=== PATIENT | female | born 1940 | race African-American/Black ===

== ENCOUNTER 2018-08-23 16:08 | Inpatient (IN) | payer MEDICARE, OTHER ==
[~2018-08-23] VITALS: Ht 175.3 cm; Wt 96.6 kg
[~2018-08-23 16:08] MED LIST: METOPROLOL TART50 MG PO
--- OUTSIDE RECORDS SUMMARY | 2018-08-23 16:10 | XMS REPORT | Summary of Care ---
Author Author [facility] Organization [facility] Address Unknown Phone Unavailable Encounter HQ Encntr_alias(FIN) [id number] Date(s): 11/07/17 - 11/07/17 [facility] [address] [place] [address]- Encounter Diagnosis Spondylolisthesis, lumbar region (Final) - 11/14/17 Discharge Disposition: Home or Self Care Attending Physician: Kamron Echeverria MD Referring Physician: Kamron Echeverria MD Vital Signs No data available for this section Problem List No data available for this section Allergies, Adverse Reactions, Alerts No data available for this section Medications No data available for this section Results No data available for this section Immunizations No data available for this section Procedures No data available for this section Social History No data available for this section Assessment and Plan No data available for this section
--- OUTSIDE RECORDS SUMMARY | 2018-08-23 16:10 | XMS REPORT | Summary of Care ---
Author Author [facility] Organization [facility] Address Unknown Phone Unavailable Encounter HQ Encntr_alias(FIN) [id number] Date(s): 09/20/16 - 09/20/16 [facility] [address] [place] [phone] Discharge Disposition: Home or Self Care Attending Physician: Obi Jacobson MD Vital Signs No data available for [...]
--- OUTSIDE RECORDS SUMMARY | 2018-08-23 16:10 | XMS REPORT ---
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 Delroy Brooks Jr. Unavailable Unavailable Advance directives Directive Description Status Cardiopulmonary Resuscitation CPR Current and Verified Allergies Type Substance Reaction Status drug allergy Codeine Active drug allergy Hydralazine Active drug allergy Morphine Active Problems Problem Effective Dates Problem Status Walking disability (finding) 12/24/2017 Active M54.9 DORSALGIA, UNSPECIFIED 12/24/2017 Active D64.9 ANEMIA, UNSPECIFIED 12/24/2017 Active M62.81 MUSCLE WEAKNESS (GENERALIZED) 12/25/2017 Active T81.4XXS INFECTION FOLLOWING A PROCEDURE, SEQUELA 12/24/2017 Active M79.7 FIBROMYALGIA 12/24/2017 Active 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, LUMBAR REGION 12/24/2017 Active Medications Medication Dose Form Route Sig Text Dates Status Venlafaxine HCl Tablet 75 MG 1 tablet Tablet Oral Give 1 tablet by mouth one time a day for depression 12/25/2017 9:00:00 Bisacodyl Suppository 10 MG 1 suppository Suppository Rectal Insert 1 suppository rectally every 24 hours as needed for constipation 12/25/2017 8:15:00 12/26/2017 16:37:00 Aborted Tylenol Tablet 325 MG 2 tablet Tablet Oral Give 2 tablet by mouth every 4 hours as needed for pain 12/25/2017 8:15:00 Cyclobenzaprine HCl Tablet 10 MG 1 tablet Tablet Oral Give 1 tablet by mouth every 8 hours as needed for muscle pain 12/25/2017 8:15:00 12/28/2017 10:03:00 Aborted Commerce Tablet 7.5-325 MG 1 tablet Tablet Oral Give 1 tablet by mouth every 4 hours as needed for Pain 12/26/2017 10:30:00 Cyclobenzaprine HCl Tablet 10 MG 10 mg Tablet Oral Give 10 mg by mouth every 12 hours as needed for muscle spasms 12/28/2017 10:15:00 12/31/2017 4:26:00 Aborted Cyclobenzaprine HCl Tablet 10 MG 10 mg Tablet Oral Give 10 mg by mouth in the evening for muscle spasm 12/28/2017 19:00:00 Metoprolol Tartrate Tablet 25 MG 0.5 tablet Tablet Oral Give 0.5 tablet by mouth one time a day for htn=12.5mg totalHold for SBP less than 110 and or HR less than 60 12/30/2017 9:00:00 01/07/2018 12:13:00 Aborted FentaNYL Patch 72 Hour 25 MCG/HR 1 patch Patch 72 Hour Transdermal Apply 1 patch transdermally one time a day every 3 day(s) for pain and remove per schedule 12/30/2017 9:00:00 Gabapentin Capsule 300 MG 1 capsule Capsule Oral Give 1 capsule by mouth two times a day for Neuropathy 12/30/2017 17:00:00 12/31/2017 17:22:00 Aborted Cyclobenzaprine HCl Tablet 10 MG 10 mg Tablet Oral Give 10 mg by mouth every 24 hours as needed for muscle spasms Give one tab po QD/prn. Give 12 hours after scheduled dose 12/31/2017 10:15:00 Gabapentin Capsule 300 MG 1 capsule Capsule Oral Give 1 capsule by mouth every 12 hours for Neuropathy 12/31/2017 21:00:00 01/05/2018 11:11:00 Aborted NIFEdipine ER Tablet Extended Release 24 Hour 30 MG 1 tablet Tablet Extended Release 24 Hour Oral Give 1 tablet by mouth one time a day for HTN Hold for SBP less than 110 01/03/2018 9:00:00 Nifediac CC Tablet Extended Release 24 Hour 60 MG 1 tablet Tablet Extended Release 24 Hour Oral Give 1 tablet by mouth at bedtime for HTN Hold for SBP less than 110 01/02/2018 21:00:00 Gabapentin Capsule 300 MG 1 capsule Capsule Oral Give 1 capsule by mouth at bedtime for Neuropathy 01/05/2018 21:00:00 Lactobacillus Capsule 1 capsule Capsule Oral Give 1 capsule by mouth two times a day for GI Health 01/07/2018 9:00:00 Metoprolol Tartrate Tablet 25 MG 0.5 tablet Tablet Oral Give 0.5 tablet by mouth two times a day for htn=12.5mg totalHold for SBP less than 110 and or HR less than 60 01/07/2018 17:00:00 Senna Tablet 8.6 MG 1 tablet Tablet Oral Give 1 tablet by mouth every 12 hours for constipation 12/25/2017 9:00:00 Nifediac CC Tablet Extended Release 24 Hour 60 MG 1 tablet Tablet Extended Release 24 Hour Oral Give 1 tablet by mouth one time a day for htn Give 30mg and 60mg=90mgHold for SBP less than 110 and or hr less than 60 12/25/2017 9:00:00 01/02/2018 13:45:00 Aborted Metoprolol Tartrate Tablet 25 MG 0.5 tablet Tablet Oral Give 0.5 tablet by mouth one time a day for htn Hold for SBP less than 110 and or HR less than 60 12/25/2017 9:00:00 12/25/2017 9:57:00 Aborted Zofran ODT Tablet Disintegrating 4 MG 1 tablet Tablet Disintegrating Oral Give 1 tablet by mouth every 4 hours as needed for N/V 12/25/2017 7:15:00 12/26/2017 16:36:00 Aborted Isosorbide Dinitrate Tablet 30 MG 1 tablet Tablet Oral Give 1 tablet by mouth one time a day for afib 12/25/2017 9:00:00 Nifedical XL Tablet Extended Release 24 Hour 30 MG 1 tablet Tablet Extended Release 24 Hour Oral Give 1 tablet by mouth one time a day for htn Give 30mg and 60mg=90mgHold for SBP less than 110 and or hr less than 60 12/25/2017 9:00:00 01/02/2018 13:45:00 Aborted Metoprolol Tartrate Tablet 25 MG 0.5 tablet Tablet Oral Give 0.5 tablet by mouth one time a day for htn=1.5mg totalHold for SBP less than 110 and or HR less than 60 12/26/2017 9:00:00 12/29/2017 9:49:00 Aborted Celecoxib Capsule 200 MG 1 capsule Capsule Oral Give 1 capsule by mouth every 12 hours as needed for pain 12/25/2017 7:15:00 12/26/2017 16:36:00 Aborted HydrALAZINE HCl Tablet 25 MG 1 tablet Tablet Oral Give 1 tablet by mouth three times a day for HTN hold for SBP less than 110 01/09/2018 17:00:00 01/10/2018 8:38:00 Aborted CloNIDine HCl Tablet 0.1 MG 1 tablet Tablet Oral Give 1 tablet by mouth every 12 hours as needed for HTN give for SBP greater than 170 01/10/2018 9:15:00 Rifadin Capsule 300 MG 2 capsule Capsule Oral Give 2 capsule by mouth in the evening for spinal infection until 01/08/2018 23:59 12/25/2017 17:00:00 01/08/2018 23:59:00 Completed Potassium Chloride ER Tablet Extended Release 20 MEQ Tablet Extended Release Oral Give 2 tablet by mouth one time only for low kcl until 01/08/2018 23:59 AND Give 1 tablet by mouth one time a day for low kcl for 3 Days 01/08/2018 13:45:00 01/12/2018 8:59:00 Completed Vancomycin HCl Solution Reconstituted 750 MG 750 mg Solution Reconstituted Intravenous Use 750 mg intravenously every 12 hours for laminectomy until 01/25/2018 23:59 12/25/2017 9:00:00 01/25/2018 23:59:00 Results Date Test Result Interpretation Reference Range Status Notes Blood sugar 12/09/2017 Blood sugar mmol/L Vital signs Description Observation Date BODY HEIGHT (MEASURED) 69.0 [in_i] 12/09/2017 BODY WEIGHT (MEASURED) 189.0 [lb_av] 12/09/2017 PAIN LEVEL 7.0 {score} 12/25/2017 11:39:40 PAIN LEVEL 8.0 {score} 12/25/2017 11:39:59 BODY WEIGHT (MEASURED) 189.0 [lb_av] 12/25/2017 15:17:00 BODY HEIGHT (MEASURED) 69.0 [in_i] 12/25/2017 15:17:00 BODY WEIGHT (MEASURED) 189.0 [lb_av] 12/25/2017 15:18:00 BODY HEIGHT (MEASURED) 69.0 [in_i] 12/25/2017 15:18:00 PAIN LEVEL 2.0 {score} 12/25/2017 16:44:51 PAIN LEVEL 5.0 {score} 12/26/2017 2:51:24 PAIN LEVEL 0.0 {score} 12/26/2017 4:01:00 INTRAVASCULAR SYSTOLIC 160.0 mm[Hg] 12/26/2017 9:50:16 INTRAVASCULAR DIASTOLIC 93.0 mm[Hg] 12/26/2017 9:50:16 HEART BEAT 85.0 {beats}/min 12/26/2017 9:50:16 PAIN LEVEL 0.0 {score} 12/26/2017 13:35:58 PAIN LEVEL 0.0 {score} 12/26/2017 17:22:10 BODY TEMPERATURE 97.5 [degF] 12/26/2017 17:39:00 OXYGEN SATURATION 98.0 % 12/26/2017 17:39:00 RESPIRATION RATE 18.0 /min 12/26/2017 17:40:00 INTRAVASCULAR SYSTOLIC 172.0 mm[Hg] 12/27/2017 12:09:26 INTRAVASCULAR DIASTOLIC 94.0 mm[Hg] 12/27/2017 12:09:26 HEART BEAT 91.0 {beats}/min 12/27/2017 12:09:26 INTRAVASCULAR SYSTOLIC 180.0 mm[Hg] 12/28/2017 9:24:09 INTRAVASCULAR DIASTOLIC 94.0 mm[Hg] 12/28/2017 9:24:09 HEART BEAT 86.0 {beats}/min 12/28/2017 9:24:09 PAIN LEVEL 7.0 {score} 12/29/2017 7:38:22 INTRAVASCULAR SYSTOLIC 146.0 mm[Hg] 12/29/2017 9:57:23 INTRAVASCULAR DIASTOLIC 89.0 mm[Hg] 12/29/2017 9:57:23 HEART BEAT 89.0 {beats}/min 12/29/2017 9:57:23 PAIN LEVEL 3.0 {score} 12/29/2017 11:28:34 PAIN LEVEL 2.0 {score} 12/29/2017 14:54:34 PAIN LEVEL 6.0 {score} 12/29/2017 14:54:54 PAIN LEVEL 4.0 {score} 12/29/2017 15:52:48 PAIN LEVEL 4.0 {score} 12/29/2017 20:01:00 PAIN LEVEL 2.0 {score} 12/29/2017 22:55:06 PAIN LEVEL 0.0 {score} 12/30/2017 2:56:18 PAIN LEVEL 7.0 {score} 12/30/2017 6:40:41 PAIN LEVEL 0.0 {score} 12/30/2017 10:33:41 INTRAVASCULAR SYSTOLIC 166.0 mm[Hg] 12/30/2017 10:34:13 INTRAVASCULAR DIASTOLIC 97.0 mm[Hg] 12/30/2017 10:34:13 HEART BEAT 77.0 {beats}/min 12/30/2017 10:34:13 PAIN LEVEL 1.0 {score} 12/30/2017 14:51:57 PAIN LEVEL 7.0 {score} 12/30/2017 14:53:03 PAIN LEVEL 3.0 {score} 12/30/2017 17:05:20 PAIN LEVEL 3.0 {score} 12/30/2017 17:05:47 PAIN LEVEL 3.0 {score} 12/30/2017 17:06:25 PAIN LEVEL 0.0 {score} 12/31/2017 3:08:38 INTRAVASCULAR SYSTOLIC 158.0 mm[Hg] 12/31/2017 9:58:53 INTRAVASCULAR DIASTOLIC 88.0 mm[Hg] 12/31/2017 9:58:53 HEART BEAT 83.0 {beats}/min 12/31/2017 9:58:53 PAIN LEVEL 7.0 {score} 12/31/2017 11:34:16 PAIN LEVEL 1.0 {score} 12/31/2017 15:02:38 PAIN LEVEL 7.0 {score} 12/31/2017 15:02:57 PAIN LEVEL 4.0 {score} 12/31/2017 20:42:12 PAIN LEVEL 0.0 {score} 12/31/2017 23:47:58 INTRAVASCULAR SYSTOLIC 173.0 mm[Hg] 01/01/2018 10:07:29 INTRAVASCULAR DIASTOLIC 97.0 mm[Hg] 01/01/2018 10:07:29 HEART BEAT 93.0 {beats}/min 01/01/2018 10:07:29 PAIN LEVEL 7.0 {score} 01/01/2018 10:08:22 PAIN LEVEL 3.0 {score} 01/01/2018 16:37:55 PAIN LEVEL 4.0 {score} 01/01/2018 16:38:16 PAIN LEVEL 7.0 {score} 01/01/2018 16:38:30 PAIN LEVEL 2.0 {score} 01/01/2018 16:38:37 PAIN LEVEL 2.0 {score} 01/01/2018 16:38:46 PAIN LEVEL 4.0 {score} 01/01/2018 21:49:43 PAIN LEVEL 3.0 {score} 01/01/2018 22:02:48 PAIN LEVEL 0.0 {score} 01/02/2018 3:24:15 PAIN LEVEL 5.0 {score} 01/02/2018 8:49:24 PAIN LEVEL 0.0 {score} 01/02/2018 9:59:31 PAIN LEVEL 0.0 {score} 01/02/2018 10:00:10 INTRAVASCULAR SYSTOLIC 123.0 mm[Hg] 01/02/2018 10:03:25 INTRAVASCULAR DIASTOLIC 92.0 mm[Hg] 01/02/2018 10:03:25 HEART BEAT 79.0 {beats}/min 01/02/2018 10:03:25 PAIN LEVEL 9.0 {score} 01/02/2018 13:53:59 PAIN LEVEL 9.0 {score} 01/02/2018 13:55:40 PAIN LEVEL 0.0 {score} 01/02/2018 16:29:07 PAIN LEVEL 4.0 {score} 01/02/2018 17:44:00 PAIN LEVEL 0.0 {score} 01/02/2018 19:04:20 INTRAVASCULAR SYSTOLIC 190.0 mm[Hg] 01/02/2018 20:32:20 INTRAVASCULAR DIASTOLIC 93.0 mm[Hg] 01/02/2018 20:32:20 PAIN LEVEL 3.0 {score} 01/02/2018 21:59:27 PAIN LEVEL 3.0 {score} 01/02/2018 22:44:52 PAIN LEVEL 4.0 {score} 01/02/2018 22:45:17 PAIN LEVEL 0.0 {score} 01/03/2018 9:47:40 INTRAVASCULAR SYSTOLIC 149.0 mm[Hg] 01/03/2018 12:19:18 INTRAVASCULAR DIASTOLIC 86.0 mm[Hg] 01/03/2018 12:19:18 HEART BEAT 82.0 {beats}/min 01/03/2018 12:19:18 PAIN LEVEL 1.0 {score} 01/03/2018 17:33:51 INTRAVASCULAR SYSTOLIC 190.0 mm[Hg] 01/03/2018 21:19:07 INTRAVASCULAR DIASTOLIC 94.0 mm[Hg] 01/03/2018 21:19:07 INTRAVASCULAR SYSTOLIC 168.0 mm[Hg] 01/04/2018 11:02:20 INTRAVASCULAR DIASTOLIC 82.0 mm[Hg] 01/04/2018 11:02:20 HEART BEAT 79.0 {beats}/min 01/04/2018 11:02:20 INTRAVASCULAR SYSTOLIC 173.0 mm[Hg] 01/04/2018 21:07:37 INTRAVASCULAR DIASTOLIC 92.0 mm[Hg] 01/04/2018 21:07:37 PAIN LEVEL 0.0 {score} 01/05/2018 8:48:12 PAIN LEVEL 0.0 {score} 01/05/2018 8:48:34 PAIN LEVEL 0.0 {score} 01/05/2018 9:41:39 PAIN LEVEL 0.0 {score} 01/05/2018 9:41:55 PAIN LEVEL 7.0 {score} 01/05/2018 11:10:38 BODY WEIGHT (MEASURED) 186.2 [lb_av] 01/05/2018 15:59:00 BODY HEIGHT (MEASURED) 69.0 [in_i] 01/05/2018 15:59:00 PAIN LEVEL 0.0 {score} 01/05/2018 16:17:20 PAIN LEVEL 0.0 {score} 01/05/2018 17:19:52 INTRAVASCULAR SYSTOLIC 143.0 mm[Hg] 01/05/2018 20:37:42 INTRAVASCULAR DIASTOLIC 86.0 mm[Hg] 01/05/2018 20:37:42 PAIN LEVEL 7.0 {score} 01/06/2018 8:02:01 INTRAVASCULAR SYSTOLIC 165.0 mm[Hg] 01/06/2018 10:04:11 INTRAVASCULAR DIASTOLIC 96.0 mm[Hg] 01/06/2018 10:04:11 HEART BEAT 95.0 {beats}/min 01/06/2018 10:04:11 PAIN LEVEL 2.0 {score} 01/06/2018 15:17:46 PAIN LEVEL 2.0 {score} 01/06/2018 18:37:30 INTRAVASCULAR SYSTOLIC 172.0 mm[Hg] 01/06/2018 20:25:42 INTRAVASCULAR DIASTOLIC 84.0 mm[Hg] 01/06/2018 20:25:42 PAIN LEVEL 0.0 {score} 01/07/2018 7:21:19 PAIN LEVEL 0.0 {score} 01/07/2018 7:21:48 INTRAVASCULAR SYSTOLIC 154.0 mm[Hg] 01/07/2018 10:07:54 INTRAVASCULAR DIASTOLIC 87.0 mm[Hg] 01/07/2018 10:07:54 HEART BEAT 92.0 {beats}/min 01/07/2018 10:07:54 INTRAVASCULAR SYSTOLIC 174.0 mm[Hg] 01/07/2018 16:54:26 INTRAVASCULAR DIASTOLIC 88.0 mm[Hg] 01/07/2018 16:54:26 HEART BEAT 83.0 {beats}/min 01/07/2018 16:54:26 INTRAVASCULAR SYSTOLIC 190.0 mm[Hg] 01/07/2018 20:57:12 INTRAVASCULAR DIASTOLIC 100.0 mm[Hg] 01/07/2018 20:57:12 PAIN LEVEL 0.0 {score} 01/07/2018 21:56:06 PAIN LEVEL 0.0 {score} 01/08/2018 10:09:57 PAIN LEVEL 0.0 {score} 01/08/2018 10:10:29 INTRAVASCULAR SYSTOLIC 110.0 mm[Hg] 01/08/2018 10:19:44 INTRAVASCULAR DIASTOLIC 77.0 mm[Hg] 01/08/2018 10:19:44 HEART BEAT 84.0 {beats}/min 01/08/2018 10:19:44 PAIN LEVEL 6.0 {score} 01/08/2018 13:06:00 INTRAVASCULAR SYSTOLIC 185.0 mm[Hg] 01/08/2018 17:03:44 INTRAVASCULAR DIASTOLIC 92.0 mm[Hg] 01/08/2018 17:03:44 HEART BEAT 77.0 {beats}/min 01/08/2018 17:03:44 PAIN LEVEL 6.0 {score} 01/08/2018 17:05:53 PAIN LEVEL 0.0 {score} 01/08/2018 20:24:48 INTRAVASCULAR SYSTOLIC 194.0 mm[Hg] 01/08/2018 20:30:27 INTRAVASCULAR DIASTOLIC 98.0 mm[Hg] 01/08/2018 20:30:27 PAIN LEVEL 0.0 {score} 01/08/2018 21:47:14 PAIN LEVEL 4.0 {score} 01/08/2018 21:47:35 PAIN LEVEL 0.0 {score} 01/09/2018 4:48:12 PAIN LEVEL 0.0 {score} 01/09/2018 4:48:25 PAIN LEVEL 0.0 {score} 01/09/2018 6:35:31 PAIN LEVEL 6.0 {score} 01/09/2018 9:46:00 INTRAVASCULAR SYSTOLIC 160.0 mm[Hg] 01/09/2018 10:53:30 INTRAVASCULAR DIASTOLIC 84.0 mm[Hg] 01/09/2018 10:53:30 HEART BEAT 81.0 {beats}/min 01/09/2018 10:53:30 PAIN LEVEL 4.0 {score} 01/09/2018 14:58:58 PAIN LEVEL 7.0 {score} 01/09/2018 15:00:19 INTRAVASCULAR SYSTOLIC 180.0 mm[Hg] 01/09/2018 17:06:11 INTRAVASCULAR DIASTOLIC 100.0 mm[Hg] 01/09/2018 17:06:11 HEART BEAT 83.0 {beats}/min 01/09/2018 17:06:11 PAIN LEVEL 3.0 {score} 01/09/2018 19:18:25 PAIN LEVEL 2.0 {score} 01/09/2018 21:17:11 PAIN LEVEL 3.0 {score} 01/09/2018 21:17:51 PAIN LEVEL 3.0 {score} 01/09/2018 22:06:49 INTRAVASCULAR SYSTOLIC 194.0 mm[Hg] 01/10/2018 9:51:25 INTRAVASCULAR DIASTOLIC 84.0 mm[Hg] 01/10/2018 9:51:25 HEART BEAT 85.0 {beats}/min 01/10/2018 9:51:25 INTRAVASCULAR SYSTOLIC 195.0 mm[Hg] 01/10/2018 17:51:23 INTRAVASCULAR DIASTOLIC 96.0 mm[Hg] 01/10/2018 17:51:23 HEART BEAT 78.0 {beats}/min 01/10/2018 17:51:23 PAIN LEVEL 4.0 {score} 01/10/2018 19:21:12 INTRAVASCULAR SYSTOLIC 162.0 mm[Hg] 01/10/2018 21:34:58 INTRAVASCULAR DIASTOLIC 78.0 mm[Hg] 01/10/2018 21:34:58 PAIN LEVEL 0.0 {score} 01/11/2018 7:32:32 INTRAVASCULAR SYSTOLIC 176.0 mm[Hg] 01/11/2018 10:11:57 INTRAVASCULAR DIASTOLIC 74.0 mm[Hg] 01/11/2018 10:11:57 HEART BEAT 82.0 {beats}/min 01/11/2018 10:11:57 INTRAVASCULAR SYSTOLIC 172.0 mm[Hg] 01/11/2018 17:45:47 INTRAVASCULAR DIASTOLIC 86.0 mm[Hg] 01/11/2018 17:45:47 HEART BEAT 78.0 {beats}/min 01/11/2018 17:45:47 INTRAVASCULAR SYSTOLIC 181.0 mm[Hg] 01/11/2018 20:58:32 INTRAVASCULAR DIASTOLIC 90.0 mm[Hg] 01/11/2018 20:58:32 PAIN LEVEL 0.0 {score} 01/12/2018 6:28:41 PAIN LEVEL 0.0 {score} 01/12/2018 6:28:50 INTRAVASCULAR SYSTOLIC 152.0 mm[Hg] 01/12/2018 10:01:33 INTRAVASCULAR DIASTOLIC 95.0 mm[Hg] 01/12/2018 10:01:33 HEART BEAT 74.0 {beats}/min 01/12/2018 10:01:33 PAIN LEVEL 10.0 {score} 01/12/2018 11:17:37 PAIN LEVEL 0.0 {score} 01/12/2018 13:31:14 INTRAVASCULAR SYSTOLIC 152.0 mm[Hg] 01/12/2018 16:31:00 INTRAVASCULAR DIASTOLIC 60.0 mm[Hg] 01/12/2018 16:31:00 HEART BEAT 74.0 {beats}/min 01/12/2018 16:31:00 PAIN LEVEL 0.0 {score} 01/12/2018 17:06:43 PAIN LEVEL 8.0 {score} 01/12/2018 19:59:37 INTRAVASCULAR SYSTOLIC 184.0 mm[Hg] 01/12/2018 20:54:27 INTRAVASCULAR DIASTOLIC 89.0 mm[Hg] 01/12/2018 20:54:27 PAIN LEVEL 0.0 {score} 01/12/2018 21:53:03 PAIN LEVEL 7.0 {score} 01/13/2018 8:05:00 INTRAVASCULAR SYSTOLIC 149.0 mm[Hg] 01/13/2018 10:16:02 INTRAVASCULAR DIASTOLIC 66.0 mm[Hg] 01/13/2018 10:16:02 HEART BEAT 67.0 {beats}/min 01/13/2018 10:16:02 PAIN LEVEL 7.0 {score} 01/13/2018 13:25:05 PAIN LEVEL 2.0 {score} 01/13/2018 13:25:16 Social History Smoking Status Start Date End Date Unknown if ever smoked 01/14/2018 6:05:29
--- OUTSIDE RECORDS SUMMARY | 2018-08-23 16:10 | XMS REPORT | Continuity of Care Document ---
Author Author [facility] Interface Address Unknown Phone Unavailable Problems Problem Status Onset Date Classification Date Reported Comments Source M62.81 MUSCLE WEAKNESS 12/25/2017 Diagnosis 01/14/2018 SNF: [facility] [place] [email or web address] [place] [facility] Walking disability 12/24/2017 Diagnosis 01/14/2018 SNF: [facility] [place] [facility] M54.9 DORSALGIA, UNSPECIFIED 12/24/2017 Diagnosis 01/14/2018 SNF: [facility] [place] [facility] D64.9 ANEMIA, UNSPECIFIED 12/24/2017 Diagnosis 01/14/2018 SNF: [facility] [email or web address] [place] [facility] T81.4XXS INFECTION FOLLOWING A PROCEDURE, SEQUELA 12/24/2017 Diagnosis 01/14/2018 SNF: [facility] [place] [email or web address] [place] [facility] M79.7 FIBROMYALGIA 12/24/2017 Diagnosis 01/14/2018 SNF: [facility] [email or web address] [place] [facility] 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, LUMBAR REGION 12/24/2017 Diagnosis 01/14/2018 SNF: [facility] [email or web address] [place] [facility] Spondylolisthesis, lumbar region 11/15/2017 02/13/2018 [facility] M43.16 Active 11/06/2017 [facility] M75.101 - UNSP ROTATR-CUFF TEAR/RUPTR OF Active 09/17/2016 [facility] [place] Medications Medication Details Route Status Patient Instructions Ordering Provider Order Date Source CloNIDine HCl Tablet 0.1 MG Give 1 tablet by mouth every 12 hours as needed for HTN give for SBP greater than 170 Oral Active 01/10/2018 SNF: [facility] HydrALAZINE HCl Tablet 25 MG Give 1 tablet by mouth three times a day for HTN hold for SBP less than 110 Oral Active 01/09/2018 SNF: [facility] Potassium Chloride ER Tablet Extended Release 20 MEQ Give 2 tablet by mouth one time only for low kcl until 01/08/2018 23:59 AND Give 1 tablet by mouth one time a day for low kcl for 3 Days Oral Active 01/08/2018 SNF: [facility] Metoprolol Tartrate Tablet 25 MG Give 0.5 tablet by mouth two times a day for htn=12.5mg total Hold for SBP less than 110 and or HR less than 60 Oral Active 01/07/2018 SNF: [facility] Lactobacillus Capsule Give 1 capsule by mouth two times a day for GI Health Oral Active 01/07/2018 SNF: [facility] Gabapentin Capsule 300 MG Give 1 capsule by mouth at bedtime for Neuropathy Oral Active 01/06/2018 SNF: [facility] NIFEdipine ER Tablet Extended Release 24 Hour 30 MG Give 1 tablet by mouth one time a day for HTN Hold for SBP less than 110 Oral Active 01/03/2018 SNF: [facility] Nifediac CC Tablet Extended Release 24 Hour 60 MG Give 1 tablet by mouth at bedtime for HTN Hold for SBP less than 110 Oral Active 01/03/2018 SNF: [facility] Gabapentin Capsule 300 MG Give 1 capsule by mouth every 12 hours for Neuropathy Oral Active 01/01/2018 SNF: [facility] Cyclobenzaprine HCl Tablet 10 MG Give 10 mg by mouth every 24 hours as needed for muscle spasms Give one tab po QD/prn. Give 12 hours after scheduled dose Oral Active 12/31/2017 SNF: [facility] Gabapentin Capsule 300 MG Give 1 capsule by mouth two times a day for Neuropathy Oral Active 12/30/2017 SNF: [facility] Metoprolol Tartrate Tablet 25 MG Give 0.5 tablet by mouth one time a day for htn=12.5mg total Hold for SBP less than 110 and or HR less than 60 Oral Active 12/30/2017 SNF: [facility] FentaNYL Patch 72 Hour 25 MCG/HR Apply 1 patch transdermally one time a day every 3 day(s) for pain and remove per schedule Transdermal Active 12/30/2017 SNF: [facility] Cyclobenzaprine HCl Tablet 10 MG Give 10 mg by mouth in the evening for muscle spasm Oral Active 12/28/2017 SNF: [facility] Cyclobenzaprine HCl Tablet 10 MG Give 10 mg by mouth every 12 hours as needed for muscle spasms Oral Active 12/28/2017 SNF: [facility] Nash Tablet 7.5-325 MG Give 1 tablet by mouth every 4 hours as needed for Pain Oral Active 12/26/2017 SNF: [facility] Metoprolol Tartrate Tablet 25 MG Give 0.5 tablet by mouth one time a day for htn=1.5mg total Hold for SBP less than 110 and or HR less than 60 Oral Active 12/26/2017 SNF: [facility] Rifadin Capsule 300 MG Give 2 capsule by mouth in the evening for spinal infection until 01/08/2018 23:59 Oral Active 12/25/2017 SNF: [facility] Venlafaxine HCl Tablet 75 MG Give 1 tablet by mouth one time a day for depression Oral Active 12/25/2017 SNF: [facility] Senna Tablet 8.6 MG Give 1 tablet by mouth every 12 hours for constipation Oral Active 12/25/2017 SNF: [facility] Nifediac CC Tablet Extended Release 24 Hour 60 MG Give 1 tablet by mouth one time a day for htn Give 30mg and 60mg=90mg Hold for SBP less than 110 and or hr less than 60 Oral Active 12/25/2017 SNF: [facility] Metoprolol Tartrate Tablet 25 MG Give 0.5 tablet by mouth one time a day for htn Hold for SBP less than 110 and or HR less than 60 Oral Inactive 12/25/2017 SNF: [facility] Isosorbide Dinitrate Tablet 30 MG Give 1 tablet by mouth one time a day for afib Oral Active 12/25/2017 SNF: [facility] Nifedical XL Tablet Extended Release 24 Hour 30 MG Give 1 tablet by mouth one time a day for htn Give 30mg and 60mg=90mg Hold for SBP less than 110 and or hr less than 60 Oral Active 12/25/2017 SNF: [facility] Vancomycin HCl Solution Reconstituted 750 MG Use 750 mg intravenously every 12 hours for laminectomy until 01/25/2018 23:59 Intravenous Active 12/25/2017 SNF: [facility] Bisacodyl Suppository 10 MG Insert 1 suppository rectally every 24 hours as needed for constipation Rectal Active 12/25/2017 SNF: [facility] Tylenol Tablet 325 MG Give 2 tablet by mouth every 4 hours as needed for pain Oral Active 12/25/2017 SNF: [facility] [place] [facility] Cyclobenzaprine HCl Tablet 10 MG Give 1 tablet by mouth every 8 hours as needed for muscle pain Oral Active 12/25/2017 SNF: [facility] [place] [facility] Zofran ODT Tablet Disintegrating 4 MG Give 1 tablet by mouth every 4 hours as needed for N/V Oral Active 12/25/2017 SNF: [facility] Celecoxib Capsule 200 MG Give 1 capsule by mouth every 12 hours as needed for pain Oral Active 12/25/2017 SNF: [facility] [place] [facility] Allergies, Adverse Reactions, Alerts Substance Category Reaction Severity Reaction type Status Date Reported Comments Source Codeine SNF: [facility] [place] [facility] Hydralazine SNF: [facility] [place] [facility] Morphine SNF: [facility] [place] [facility] Immunizations Immunization Date Given Site Status Last Updated Comments Source Results Order Name Results Value Reference Range Date Interpretation Comments Source Bone Density Scan Bone Density Scan Patient Name: ARDEN RIVERA : 1940; Age: 76 years y/o Female MR: [id number] Study: Bone Density Scan 11/07/2017 1:07 PM CDT Ordering Physician: Kamron Echeverria MD Comparison: None 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 The T score at the lumbar spine is 0.9 which is 109% expected peak bone mineral density. The T score at the left hip is 0.0 which is 100% expected peak bone mineral density. IMPRESSION: Normal bone mineral density at the lumbar spine. Normal bone mineral density at the left hip. SL: [id number] 11/07/2017 - - Read by: Elian Ramirez MD Dictated Date/time: 11/07/17 13:51 Electronically Signed by: Elian Ramirez MD 11/07/17 14:05 FINAL REPORT [facility] Shoulder wo contrast MRI Shoulder wo contrast MRI EXAMINATION: MR right shoulder without contrast HISTORY: M75.101 Unspecified rotator cuff tear or rupture of right shoulder, not specified as traumatic; right shoulder pain and limited range of motion status post fall in July 2016; right rotator cuff tear; right glenohumeral chondrosis COMPARISON: There are no radiographs available for review. TECHNIQUE: Multiplanar, multisequence magnetic resonance imaging of the right shoulder is performed with a local coil. Transverse, oblique coronal, and oblique sagittal images are obtained. FINDINGS: Biceps: There is medial dislocation of the proximal long head of the biceps tendon from the bicipital groove within an interstitial tear of the distal subscapularis tendon. The long head of the biceps tendon remains attached at the superior bicipital labral complex with underlying [id number] biceps tendinosis. Labrum: There is degenerative fraying of the superior labrum. The remainder of the labrum is intact. Rotator cuff tendons: There is a large full-thickness tear involving the entire supraspinatus and majority of the infraspinatus tendon measuring approximately 4.4 cm in anteroposterior dimension with medial retraction of the torn distal tendon fibers by approximately 4 cm and retraction of the myotendinous junctions to the level of the scapular neck. There is underlying severe supraspinatus and infraspinatus tendinosis. The teres minor tendon remains intact. There is also a high-grade, partial-thickness, articular sided tear with interstitial delaminating component involving the cranial fibers of the distal subscapularis tendon measuring approximately 1.1 cm in craniocaudal dimension with underlying subscapularis tendinosis. As described above, there is complete medial dislocation of the proximal long head of the biceps tendon from the bicipital groove within the interstitial tear of the distal subscapularis tendon. Muscles: There is moderate fatty atrophy of the supraspinatus and infraspinatus muscle bellies, as well as, moderate fatty atrophy of the cranial fibers of the subscapularis muscle. There is normal signal intensity and bulk of the teres minor muscle and caudal two-thirds of the subscapularis muscle. Acromio-osseous outlet: There is superior subluxation of the humeral head with respect to the glenoid with narrowing of the subacromial space in keeping with a full-thickness rotator cuff tear. There is a type II acromion with mild subacromial spurring. The coracoacromial and coracoclavicular ligaments are intact. There is severe degenerative arthrosis of the acromioclavicular joint including inferiorly projecting osteophytes. Bone: There are no acute fractures. There are no suspicious bone marrow replacing lesions. Cartilage: There are foci of deep partial thickness to near full-thickness chondrosis involving the superior to superomedial humeral head and partial- thickness, chondral thinning along the glenoid. Soft tissue: There is a moderate-sized to large glenohumeral joint effusion with scattered synovitis and fluid decompressing within the subcoracoid recess. Fluid distends the proximal biceps tendon sheath which also contains synovitis and debris. Fluid communicates with the subacromial subdeltoid bursa through the full-thickness rotator cuff defect. A few scattered loose bodies are noted within the glenohumeral axillary recess and within the proximal biceps tendon sheath. IMPRESSION: 1. Large full-thickness tear involving the entire right supraspinatus and majority of the right infraspinatus tendons measuring approximately 4.4 cm in anteroposterior dimension with medial retraction of the torn distal tendon fibers by approximately 4 cm and retraction of the myotendinous junctions to the level of the scapular neck. There is underlying severe right supraspinatus and infraspinatus tendinosis and moderate fatty atrophy of the supraspinatus and infraspinatus muscle bellies. 2. High-grade, partial-thickness, articular sided tear with interstitial delaminating component involving the cranial fibers of the distal right subscapularis tendon measuring approximately 1.1 cm in craniocaudal dimension with underlying subscapularis tendinosis. There is also moderate fatty atrophy of the cranial fibers of the right subscapularis muscle, but normal bulk and signal intensity of the caudal two-thirds of the subscapularis muscle. 3. Superior subluxation of the humeral head with respect to the glenoid with narrowing of the subacromial space in keeping with a full-thickness rotator cuff tear. 4. Complete medial dislocation of the proximal long head of the right biceps tendon from the bicipital groove within the interstitial tear of the distal right subscapularis tendon. There is underlying mild to moderate right biceps tendinosis and there is a moderate amount of fluid and synovitic debris within the proximal biceps tendon sheath consistent with biceps tenosynovitis. 5. Degenerative fraying of the superior right glenoid labrum. 6. Moderate right glenohumeral chondrosis with foci of deep partial thickness to near full-thickness chondrosis involving the superior to superomedial humeral head and partial-thickness, chondral thinning along the glenoid. 7. Severe right acromioclavicular degenerative arthrosis. 8. Moderate-sized to large right glenohumeral joint effusion with scattered synovitis and fluid decompressing within the subcoracoid recess. A few scattered loose bodies are noted within the glenohumeral axillary recess and within the proximal biceps tendon sheath. 09/20/2016 - - Read by: Noel Cantu MD Dictated Date/time: 09/20/16 08:48 Electronically Signed by: Noel Cantu MD 09/20/16 09:04 FINAL REPORT [facility] Vital Signs Vital Sign Value Date Comments Source Systolic (mm Hg) 149 01/13/2018 SNF: [facility] [place] [facility] [place] Diastolic (mm Hg) 66 01/13/2018 SNF: [facility] [place] [facility] [place] Heart Rate 67 {beats}/min 01/13/2018 SNF: [facility] [place] [facility] [place] Systolic (mm Hg) 184 01/13/2018 [facility]: [facility] [place] [facility] [place] Diastolic (mm Hg) 89 01/13/2018 SN[facility]: [facility] [place] [facility] [place] Systolic (mm Hg) 152 01/12/2018 [facility]: [facility] [place] [facility] [place] Diastolic (mm Hg) 60 01/12/2018 SN[facility]: [facility] [place] [facility] [place] Heart Rate 74 {beats}/min 01/12/2018 SN[facility]: [facility] [place] [facility] [place] Systolic (mm Hg) 152 01/12/2018 [facility]: [facility] [place] [facility] [place] Diastolic (mm Hg) 95 01/12/2018 [facility]: [facility] [place] [facility] [place] Heart Rate 74 {beats}/min 01/12/2018 [facility]: [facility] [place] [facility] [place] Systolic (mm Hg) 181 01/12/2018 SN[facility]: [facility] [place] [facility] [place] Diastolic (mm Hg) 90 01/12/2018 [facility]: [facility] [place] [facility] [place] Systolic (mm Hg) 172 01/11/2018 [facility]: [facility] [place] [facility] [place] Diastolic (mm Hg) 86 01/11/2018 [facility]: [facility] [place] [facility] [place] Heart Rate 78 {beats}/min 01/11/2018 [facility]: [facility] [place] [facility] [place] Systolic (mm Hg) 176 01/11/2018 [facility]: [facility] [place] [facility] [place] Diastolic (mm Hg) 74 01/11/2018 [facility]: [facility] [place] [facility] [place] Heart Rate 82 {beats}/min 01/11/2018 [facility]: [facility] [place] [facility] [place] Systolic (mm Hg) 162 01/11/2018 [facility]: [facility] [place] [facility] [place] Diastolic (mm Hg) 78 01/11/2018 [facility]: [facility] [place] [facility] [place] Systolic (mm Hg) 195 01/10/2018 [facility]: [facility] [place] [facility] [place] Diastolic (mm Hg) 96 01/10/2018 [facility]: [facility] [place] [facility] [place] Heart Rate 78 {beats}/min 01/10/2018 SN[facility]: [facility] [place] [facility] [place] Systolic (mm Hg) 194 01/10/2018 [facility]: [facility] [place] [facility] [place] Diastolic (mm Hg) 84 01/10/2018 [facility]: [facility] [place] [facility] [place] Heart Rate 85 {beats}/min 01/10/2018 [facility]: [facility] [place] [facility] [place] Systolic (mm Hg) 180 01/09/2018 [facility]: [facility] [place] [facility] [place] Diastolic (mm Hg) 100 01/09/2018 [facility]: [facility] [place] [facility] [place] Heart Rate 83 {beats}/min 01/09/2018 SN[facility]: [facility] [place] [facility] [place] Systolic (mm Hg) 160 01/09/2018 [facility]: [facility] [place] [facility] [place] Diastolic (mm Hg) 84 01/09/2018 [facility]: [facility] [place] [facility] [place] Heart Rate 81 {beats}/min 01/09/2018 SN[facility]: [facility] [place] [facility] [place] Systolic (mm Hg) 194 01/09/2018 SN[facility]: [facility] [place] [facility] [place] Diastolic (mm Hg) 98 01/09/2018 SN[facility]: [facility] [place] [facility] [place] Systolic (mm Hg) 185 01/08/2018 [facility]: [facility] [place] [facility] [place] Diastolic (mm Hg) 92 01/08/2018 [facility]: [facility] [place] [facility] [place] Heart Rate 77 {beats}/min 01/08/2018 SN[facility]: [facility] [place] [facility] [place] Systolic (mm Hg) 110 01/08/2018 [facility]: [facility] [place] [facility] [place] Diastolic (mm Hg) 77 01/08/2018 [facility]: [facility] [place] [facility] [place] Heart Rate 84 {beats}/min 01/08/2018 [facility]: [facility] [place] [facility] [place] Systolic (mm Hg) 190 01/08/2018 [facility]: [facility] [place] [facility] [place] Diastolic (mm Hg) 100 01/08/2018 [facility]: [facility] [place] [facility] [place] Systolic (mm Hg) 174 01/07/2018 [facility]: [facility] [place] [facility] [place] Diastolic (mm Hg) 88 01/07/2018 [facility]: [facility] [place] [facility] [place] Heart Rate 83 {beats}/min 01/07/2018 [facility]: [facility] [place] [facility] [place] Systolic (mm Hg) 154 01/07/2018 [facility]: [facility] [place] [facility] [place] Diastolic (mm Hg) 87 01/07/2018 [facility]: [facility] [place] [facility] [place] Heart Rate 92 {beats}/min 01/07/2018 [facility]: [facility] [place] [facility] [place] Systolic (mm Hg) 172 01/07/2018 [facility]: [facility] [place] [facility] [place] Diastolic (mm Hg) 84 01/07/2018 [facility]: [facility] [place] [facility] [place] Systolic (mm Hg) 165 01/06/2018 SN[facility]: [facility] [place] [facility] [place] Diastolic (mm Hg) 96 01/06/2018 [facility]: [facility] [place] [facility] [place] Heart Rate 95 {beats}/min 01/06/2018 [facility]: [facility] [place] [facility] [place] Systolic (mm Hg) 143 01/06/2018 [facility]: [facility] [place] [facility] [place] Diastolic (mm Hg) 86 01/06/2018 [facility]: [facility] [place] [facility] [place] Weight 186.2 01/05/2018 SNF: [facility] [place] [facility] [place] Height 69 01/05/2018 SN[facility]: [facility] [place] [facility] [place] Systolic (mm Hg) 173 01/05/2018 [facility]: [facility] [place] [facility] [place] Diastolic (mm Hg) 92 01/05/2018 [facility]: [facility] [place] [facility] [place] Systolic (mm Hg) 168 01/04/2018 [facility]: [facility] [place] [facility] [place] Diastolic (mm Hg) 82 01/04/2018 [facility]: [facility] [place] [facility] [place] Heart Rate 79 {beats}/min 01/04/2018 SN[facility]: [facility] [place] [facility] [place] Systolic (mm Hg) 190 01/04/2018 [facility]: [facility] [place] [facility] [place] Diastolic (mm Hg) 94 01/04/2018 [facility]: [facility] [place] [facility] [place] Systolic (mm Hg) 149 01/03/2018 SN[facility]: [facility] [place] [facility] [place] Diastolic (mm Hg) 86 01/03/2018 [facility]: [facility] [place] [facility] [place] Heart Rate 82 {beats}/min 01/03/2018 [facility]: [facility] [place] [facility] [place] Systolic (mm Hg) 190 01/03/2018 [facility]: [facility] [place] [facility] [place] Diastolic (mm Hg) 93 01/03/2018 [facility]: [facility] [place] [facility] [place] Systolic (mm Hg) 123 01/02/2018 SN[facility]: [facility] [place] [facility] [place] Diastolic (mm Hg) 92 01/02/2018 [facility]: [facility] [place] [facility] [place] Heart Rate 79 {beats}/min 01/02/2018 SN[facility]: [facility] [place] [facility] [place] Systolic (mm Hg) 173 01/01/2018 [facility]: [facility] [place] [facility] [place] Diastolic (mm Hg) 97 01/01/2018 [facility]: [facility] [place] [facility] [place] Heart Rate 93 {beats}/min 01/01/2018 SN[facility]: [facility] [place] [facility] [place] Systolic (mm Hg) 158 12/31/2017 SNF: [facility] [place] [facility] [place] Diastolic (mm Hg) 88 12/31/2017 [facility]: [facility] [place] [facility] [place] Heart Rate 83 {beats}/min 12/31/2017 [facility]: [facility] [place] [facility] [place] Systolic (mm Hg) 166 12/30/2017 SN[facility]: [facility] [place] [facility] [place] Diastolic (mm Hg) 97 12/30/2017 [facility]: [facility] [place] [facility] [place] Heart Rate 77 {beats}/min 12/30/2017 SN[facility]: [facility] [place] [facility] [place] Systolic (mm Hg) 146 12/29/2017 SNF: [facility] [place] [facility] [place] Diastolic (mm Hg) 89 12/29/2017 [facility]: [facility] [place] [facility] [place] Heart Rate 89 {beats}/min 12/29/2017 SN[facility]: [facility] [place] [facility] [place] Systolic (mm Hg) 180 12/28/2017 [facility]: [facility] [place] [facility] [place] Diastolic (mm Hg) 94 12/28/2017 [facility]: [facility] [place] [facility] [place] Heart Rate 86 {beats}/min 12/28/2017 SN[facility]: [facility] [place] [facility] [place] Systolic (mm Hg) 172 12/27/2017 SN[facility]: [facility] [place] [facility] [place] Diastolic (mm Hg) 94 12/27/2017 [facility]: [facility] [place] [facility] [place] Heart Rate 91 {beats}/min 12/27/2017 [facility]F: [facility] [place] [facility] [place] Respitory Rate 18 12/26/2017 SN[facility]: [facility] [place] [facility] [place] Temperature Oral (F) 97.5 F 12/26/2017 SNF: [facility] [place] [facility] [place] Systolic (mm Hg) 160 12/26/2017 [facility]: [facility] [place] [facility] [place] Diastolic (mm Hg) 93 12/26/2017 [facility]: [facility] [place] [facility] [place] Heart Rate 85 {beats}/min 12/26/2017 [facility]: [facility] [place] [facility] [place] Weight 189 12/25/2017 [facility]: [facility] [place] [facility] [place] Height 69 12/25/2017 SN[facility]: [facility] [place] [facility] [place] Weight 189 12/25/2017 [facility]: [facility] [place] [facility] [place] Height 69 12/25/2017 [facility]: [facility] [place] [facility] [place] Height 69 12/09/2017 SN[facility]: [facility] [place] [facility] [place] Weight 189 12/09/2017 SNF: [facility] [place] Encounters Location Location Details Encounter Type Encounter Number Reason For Visit Attending Provider ADM Date DC Date Status Source [facility] Outpatient Imaging - [facility] [id number] Obi Jacobson 09/20/2016 09/21/2016 [facility] Outpatient [id number] Kamron Echeverria 11/07/2017 11/08/2017 [facility] Procedures Procedure Code Date Perfomer Comments Source
--- OUTSIDE RECORDS SUMMARY | 2018-08-23 16:10 | XMS REPORT ---
Author [facility] Address Unknown Phone Unavailable Care Team Providers Care Wafer Mounter Name Role Phone Unavailable Unavailable Payers Payer Name Policy Type Policy Number Effective Date Expiration Date Problems This patient has no known problems. Allergies, Adverse Reactions, Alerts Allergy Name Allergy Type Status Severity Reaction(s) Onset Date Inactive Date Treating Clinician Comments morphine DA Active 2017-12-15 00:00:00 codeine DA Active SV 2017-12-15 00:00:00 hydralazine DA Active 2017-12-15 00:00:00 Medications This patient has no known medications.
[2018-08-23 17:12] LABS: CLARITY,URINE CLEAR (CLEAR); COLOR,URINE YELLOW (YELLOW)
[2018-08-23 17:13] LABS: LEUKOCYTE ESTERASE ,URINE NEGATIVE (NEGATIVE); NITRITE,URINE NEGATIVE (NEGATIVE)
[2018-08-23 17:14] LABS: BACTERIA,URINE FEW /HPF; BILIRUBIN,URINE NEGATIVE (NEGATIVE); EPITHELIAL CELLS,URINE FEW /LPF; KETONES,URINE NEGATIVE (NEGATIVE); PROTEIN,URINE DIPSTICK NEGATIVE (NEGATIVE); RBC,URINE 0-5 /HPF (0-5); URINE UROBILINOGEN 0.2 mg/dL (0.2 - 1)
[2018-08-23 17:16] LABS: INFLUENZAE A&B ANTIGEN (RAPID) NEGATIVE (NEGATIVE)
[2018-08-23] MEDS ORDERED: HYDROCODONE/APAP 7.5MG-325MG 1 EA TAB PO STA (18:15)
[2018-08-23 18:19] LABS: STREPTOCOCCUS GRP A ANTIGEN NEGATIVE (NEGATIVE)
--- NOTE | 2018-08-23 18:33 | Diagnostic Imaging Report ---
EXAMINATION: Left Hip Films with AP pelvis CLINICAL HISTORY:Hip and back pain after fall one week ago COMPARISON: None. DISCUSSION: The bones are well-mineralized. No acute, displaced fractures or dislocations. No gross soft tissue abnormalities. No osteolytic or osteoblastic lesions. Partially visualized fusion hardware in the lower lumbosacral spine. Pelvic phleboliths. IMPRESSION: 1. No acute abnormalities. Signed by: Dr. Jamshid Juan M.D. on 08/23/2018 6:30 PM
--- NOTE | 2018-08-23 18:36 | Diagnostic Imaging Report ---
EXAMINATION: Lumbar spine series. CLINICAL HISTORY: Status post fall one week ago, low back pain, history of fusion surgery 11/2017 COMPARISON: None. DISCUSSION: 7 views of the lumbar spine are submitted for interpretation. Five nonrib-bearing lumbar type vertebral bodies are identified. No acute, displaced fractures or subluxation. Status post posterior fusion of L3-L5 with bilateral intrapedicular screws and intervening rods as well as intervertebral disc spacers, as well as laminectomy. Orthopedic hardware is intact. Mild grade 1 anterolisthesis of L4 on L5 and L3 on L4. Vertebral body heights are preserved. Bilateral oblique views show no spondylolysis. Facet hypertrophy L5-S1. Mild degenerative changes in the sacroiliac joints. Nonobstructive bowel gas pattern. IMPRESSION: 1. No acute abnormalities. The staff physician below has personally reviewed this exam on the date of dictation. Signed by: Dr. Jamshid Juan M.D. on 08/23/2018 6:32 PM
--- NOTE | 2018-08-23 20:17 | Diagnostic Imaging Report ---
EXAM: CT HIP LEFT WO DATE: 08/23/2018 7:07 PM INDICATION: Fall, left hip pain COMPARISON: None available TECHNIQUE: The pelvis was scanned using a multidetector helical scanner. Coronal and sagittal reformations were obtained. CT low dose techniques were utilized, as applicable. IV Contrast: 0 ml Isovue 300/370 FINDINGS: PELVIS: No acute abnormality in the visualized pelvis. Incidental diverticulosis. Scattered vascular atherosclerotic calcifications. SOFT TISSUES: Unremarkable BONES: There is linear lucency and cortical step-off involving the subcapital anterior left femur best seen on image 27. Mild left hip and visualized pubic symphysis degenerative changes. IMPRESSION: Age-indeterminate incomplete subcapital left femur fracture. Consider follow-up MRI to better assess and evaluate for acuity. Signed by: Dr Ly Wallace MD on 08/23/2018 8:13 PM
[2018-08-23] MEDS ORDERED: SODIUM CHLORIDE FLUSH 10 ML SYR INJ PRN (21:00)
[2018-08-23] MEDS ORDERED: ONDANSETRON HCL INJ 2 MG/ML VIAL IV PRN (21:00)
--- NOTE | 2018-08-23 21:19 | NUR ---
PT DENIES HAVING TEMPLE CATHETER AT THIS TIME
[2018-08-23 22:30] VITALS: BP_SYST 165; BP_DIAS 71; BP_DIAS 76
--- NOTE | 2018-08-23 22:30 | NUR ---
RECEIVED PATIENT FROM ER VIA STRETCHER. AAOX3, ABLE TO AMB WITH LIMITED MOVEMENT TO L HIP. RATES PAIN 7/10 TO L HIP. HAS PRN PAIN MED AVAILABLE. REFUSED TEMPLE CATH AT THIS TIME. REQUEST TO USE BEDSIDE COMMODE. NO S/S OF RESP DISTRESS. NO OPEN WOUNDS. HAS LAC18G. ORIENTED TO ROOM. CALL LIGHT WITHIN REACH AND INSTRUCTED TO CALL FOR ASSISTANCE. BEDSIDE COMMODE AND WALKER AT BEDSIDE. REFUSED BED ALARM.
[2018-08-23] MEDS: HYDROMORPHONE 2MG/ML 2 MG/ML ML IV PRN (22:42)
[2018-08-23 23:19] VITALS: BP 165/76
[2018-08-24] MEDS ORDERED: NIFEDIPINE ER30 MG (00:20)
[2018-08-24 04:00] VITALS: BP 153/68
[2018-08-24 05:57] LABS: BASOPHILS % 0.7 % (0.0-1.0); EOSINOPHILS # (AUTO) 0.3 (0.0-0.4); EOSINOPHILS % 6.1 % (0.0-6.0); HEMATOCRIT 33.8 % (34.2-44.1); LYMPHOCYTES # (AUTO) 1.6 (1.0-3.2); LYMPHOCYTES % 33.9 % (18.0-39.1); MEAN CORPUSCULAR HEMOGLOBIN 30.3 pg (28-32); MEAN CORPUSCULAR VOLUME 94.9 fL (81-99); MONOCYTES # (AUTO) 0.6 (0.2-0.8); NEUTROPHILS # (AUTO) 2.2 (2.1-6.9); NEUTROPHILS % 47.1 % (38.7-80.0); PLATELET COUNT 186 x10e3/uL (140-360); RED BLOOD COUNT 3.56 x10e6/uL (3.6-5.1); RED CELL DISTRIBUTION WIDTH 12.9 % (11.7-14.4)
[2018-08-24] MEDS: HYDROMORPHONE 2MG/ML 2 MG/ML ML IV PRN ×3 (06:03→17:00)
[2018-08-24 06:15] LABS: HEMOGLOBIN 10.8 g/dL (12.0-16.0)
[2018-08-24 06:32] LABS: ALANINE AMINOTRANSFERASE 15 IU/L (0-55); ALBUMIN 3.4 g/dL (3.5-5.0); ALBUMIN/GLOBULIN RATIO 1.1 (0.8-2.0); ALKALINE PHOSPHATASE 84 IU/L (40-150); ANION GAP 12.6 mmol/L (8-16); BLOOD UREA NITROGEN 21 mg/dL (7-26); BUN/CREATININE RATIO 25 (6-25); CARBON DIOXIDE 26 mmol/L (22-29); CHLORIDE 105 mmol/L (98-107); CREATININE, SERUM 0.83 mg/dL (0.57-1.11); EST GLOMERULAR FILTRATION RATE > 60 ML/MIN (60-); GLUCOSE 95 mg/dL (74-118); POTASSIUM 3.6 mmol/L (3.5-5.1); SODIUM 140 mmol/L (136-145)
[2018-08-24 08:12] VITALS: BP 166/67
[2018-08-24 09:15] VITALS: BP 166/67
--- NOTE | 2018-08-24 09:16 | NUR ---
CLARIFIED HOME MEDICATIONS WITH PT, PT REPORTS LEFT GROIN/HIP PAIN 02/17, INTERMITTENT WITH MOVEMENT, OFFERED PAIN MEDICATION, PT REFUSING AT THIS TIME, TOLERATED BREAKFAST, CALL LIGHT WITHIN REACH
--- NOTE | 2018-08-24 11:30 | NUR ---
MD GOODMAN INTO SEE PT, DISCUSSED POC, ORDERS NOTED
--- NOTE | 2018-08-24 12:20 | NUR ---
TELEPHONED MD KELLER TO MAKE AWARE OF ELEVATED BP AND TO VERIFY IF CAN RESTART HOME MEDICATIONS, AWAITING CALL BACK
[2018-08-24 12:49] VITALS: BP 176/79
--- NOTE | 2018-08-24 13:35 | Consultation ---
DATE OF CONSULTATION: August 24, 2018 CHIEF COMPLAINT: Left hip pain. HISTORY OF PRESENT ILLNESS: The patient is a 77-year-old lady who has an approximately 3-week history of left hip pain. She states that about 3 weeks ago she fell off an inflatable exercise ball. She lives in an apartment complex that has a gymnasium. She tries to get some regular exercise. She states that the pain has been becoming progressively worse. For this reason, she came into the emergency room where x-rays were negative, but CT scan showed a subacute left femoral neck fracture. Orthopedic consultation was requested. PAST MEDICAL HISTORY: She has a history of hypertension. PAST SURGICAL HISTORY: Include a back fusion about 10 months ago. This was complicated by an infection and required a 3-month course the IV antibiotics and a prolonged hospital stay. She has also had bilateral total knee replacements in [place]. MEDICATIONS: Include nifedipine and metoprolol. ALLERGIES: MORPHINE AND CODEINE BOTH CAUSE ITCHING. SOCIAL HISTORY: She is . She is an independent ambulator. She has 3 children, one of whom is adopted. She does not smoke. She drinks socially. PHYSICAL EXAMINATION GENERAL: She is awake, alert and oriented. She is supine in bed. We did not try to get her to stand. EXTREMITIES: She has marked discomfort in her left groin with any attempt at passive range of motion of her left hip. Her leg is neutrally rotated. Distal neurovascular exam is normal. She has bilateral total knee scars. She has diminished muscle tone in both thighs. LABORATORY STUDIES: X-rays show no evidence of a fracture. CT scan shows a nondisplaced femoral neck fracture. IMPRESSION: Left femoral neck fracture. The findings and options were discussed with the patient. I would recommend closed reduction and percutaneous pin fixation due to the risk of displacement. The patient states she understands. The risks and benefits have been discussed. We will proceed with the surgery in the next 24 hours. Job#: [id number] HANNA
--- NOTE | 2018-08-24 14:43 | NUR ---
Nutrition Screen Note RD Recommendation for Physician: - Recommend Regular diet Plan of Care: RD following, monitoring for tolerance and adequacy Nutrition reason for involvement: Nutrition Risk Trigger- MST Primary Diagnose(s): Fall, L hip fx PMH: Bilateral TKA, no additional hx Ht: 69 in Wt: 202.06 lb BMI: 29.8 kg/m2 IBW: [address] Assessment: (08/24) 77 YOF admitted for L hip fx, seen today per MST trigger. 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 Pt denies any GI distress or wt loss. Pt denies any PMH other than bilateral knee replacements. Plan for closed reduction of L hip fx tomorrow. Skin intact. Chart reviewed. Labs and meds reviewed. Current Diet: Cardiac Malnutrition Evaluation (08/24/18) The patient does not meet criteria for a specified degree of malnutrition at this time. Will re-evaluate at follow-up as appropriate. Diet Education Needs Assessment: Diet education not indicated. Nutrition Care Level: Low Signed: Caprice Simons RD, LD, CNSC
[2018-08-24 15:45] VITALS: BP 167/74
--- NOTE | 2018-08-24 17:06 | NUR ---
SPOKE WITH PT, PT STATES NIFEDIPINE IS 50MG, TELEPHONED [facility] [phone], STATES PT TAKES 30MG NIFEDIPINE ER DAILY, NOTIFIED PT
[2018-08-24] MEDS ORDERED: HYDROCODONE/APAP 7.5MG-325MG 1 EA TAB PO PRN (17:15)
[2018-08-24] MEDS: NIFEDIPINE CR 30 MG TAB PO SCH (18:00)
--- NOTE | 2018-08-24 19:15 | NUR ---
PATIENT IN BED, NO RESPIRATORY DISTRESS OBSERVED. SHE C/O MILD PAIN TO THE LEFT HIP WITH PAIN SCORE #2, STATED THE PATIENT IS WORSE UPON MOVEMENT. CALL LIGHT WITHIN EASY REACH, INSTRUCTED TO CALL FOR ASSISTANCE NEEDED.
[2018-08-24 20:00] VITALS: BP 171/74
[2018-08-24] MEDS: HYDROCODONE/APAP 7.5MG-325MG 1 EA TAB PO PRN (20:12)
[2018-08-24] MEDS ORDERED: METOPROLOL TARTRATE 50 MG TAB PO SCH (21:00)
--- NOTE | 2018-08-24 22:23 | Diagnostic Imaging Report ---
EXAM: CHEST SINGLE (PORTABLE), AP 1 view INDICATION: Preop for surgery, close left hip fracture COMPARISON: None FINDINGS: LINES/TUBES: None LUNGS: No consolidations or edema. PLEURA: No effusions or pneumothorax. Eventration of the right hemidiaphragm. HEART AND MEDIASTINUM: Normal size and contour. BONES AND SOFT TISSUES: No acute findings. IMPRESSION: No acute thoracic abnormality. Signed by: Dr. Bibi Gómez M.D. on 08/24/2018 10:20 PM
--- NOTE | 2018-08-24 23:50 | NUR ---
PATIENT HAS TAKEN HER FIRST HIBICLENS BATH, SNACKS GIVEN SINCE THE PATIENT WILL BE ON A NOTING BY MOUTH STATUS FOR SURGERY IN THE MORNING. CALL LIGHT IN EASY REACH, INSTRUCTED TO CALL FOR ASSISTANCE NEEDED.
[2018-08-25] VITALS (7 sets, daily range): BP systolic 132–159; BP diastolic 65–74
[2018-08-25] MEDS: HYDROMORPHONE 2MG/ML 2 MG/ML ML IV PRN (00:16)
--- NOTE | 2018-08-25 02:13 | NUR ---
WALKING ROUNDS MADE, ASSISTED PATIENT TO THE BEDSIDE COMMODE TO VOID. SHE'S NOW BACK IN BED WITH WARM BLANKET GIVEN, SHE DENIES PAIN TO THE LEFT HIP. CALL LIGHT WITHIN EASY REACH, INSTRUCTED TO CALL FOR ASSISTANCE NEEDED.
--- NOTE | 2018-08-25 04:44 | NUR ---
PATIENT IN PAIN AND SHE'S MOANING, SHE REFUSED PAIN MEDICATION FOR FEAR THAT SHE'S GOING TO BE HAVING SURGERY THIS MORNING. THE PATIENT WAS TOLD THAT HER SURGICAL PROCEDURE IS NOT UNTIL 0900 SO IT'S SAFE TO ADMINISTER PAIN MEDICATION BUT SHE CONTINUE TO REFUSED THE MEDICATION.
[2018-08-25] MEDS: HYDROCODONE/APAP 7.5MG-325MG 1 EA TAB PO PRN (06:00)
[2018-08-25] MEDS: METOPROLOL TARTRATE 50 MG TAB PO SCH (06:00)
--- NOTE | 2018-08-25 07:37 | NUR ---
handoff report rec'd during walking rounds. patient sleeping with covers over her head; pulled covers back, pt has even and unlabored respirations on room air. pt denies any pain at this time. safety measures in place.
[2018-08-25] MEDS ORDERED: LACTATED RINGER'S 1,000 ML ONE (07:45)
[2018-08-25] MEDS ORDERED: NIFEDIPINE CR 30 MG TAB PO SCH (09:00)
[2018-08-25] MEDS ORDERED: NIFEDIPINE SCH (09:00)
--- NOTE | 2018-08-25 09:22 | NUR ---
Disclosure and Consent obtained; pt refused to initial the "transfusion of blood product" and "permission to dispose of severed member" on consent form.
[2018-08-25] MEDS: NIFEDIPINE CR 30 MG TAB PO SCH (09:24)
--- NOTE | 2018-08-25 10:00 | NUR ---
Workforce Advisor to bedside to discuss plan of care with patient/family. CM/SW role and care transitions discussed. Anticipated discharge plan discussed along with duration of care. CM discussed patients right to make decisions in care. CM/SW work hours given. Patient lives: PATIENT LIVES ALONE IN AN APARTMENT ON THE THIRD FLOOR IN [place], [place]. PATIENT HAS ACCESS TO ELEVATOR IN APARTMENT COMPLEX Admit/Transfer: ED POA/Emergency contact: HILARIO JENKINS: [phone] Current/Previous Home Health: NONE PCP/Follow-up Care: DR. SUNSHINE CASTRO Current/Previous DME: WALKER, WHEELCHAIR, COMMODE, CANE Other Services: NONE AT THIS TIME Employment Status: RETIRED Areas of Concerns: MOBILITY Referral Needs: RESIDENTIAL FACILITY. PATIENT REQUESTS TO BE PLACED PRIOR TO DISCHARGE HOME Education Needs: IMM/ELLIS given and signed (if applicable): Goal for discharge: PATIENT REQUESTS [facility] FOR SKILLED PLACEMENT. CHOICE LETTER SIGNED AND PLACED IN CHART. PENDING ORDERS TO CARRY OUT REQUEST CM left business card at the bedside with contact information. Name and number was also written on the patients whiteboard. Patient verbalized understanding of discussion. CM will follow-up with ongoing discharge and transition of care needs.
[2018-08-25] MEDS ORDERED: CEFAZOLIN SOD 2 GM/D5W 50ML 50 ML IV NR (11:00)
[2018-08-25] MEDS ORDERED: CEFAZOLIN SOD 1 GM VIAL IV ONE (11:00)
--- NOTE | 2018-08-25 12:14 | NUR ---
PATIENT OFF THE UNIT AT THIS TIME IN STABLE CONDITION FOR PROCEDURE VIA HOSPITAL BED.
[2018-08-25] MEDS ORDERED: DIPHENHYDRAMINE HCL INJ 50 MG/ML VIAL IM/IV PRN (13:15)
[2018-08-25] MEDS ORDERED: KETOROLAC TROMETHAMINE 30 MG/ML VIAL IV PRN (13:15)
[2018-08-25] MEDS ORDERED: HYDROCODONE/APAP 5MG-325MG TAB PO PRN (13:15)
[2018-08-25] MEDS ORDERED: DOCUSATE SODIUM 100 MG CAP PO PRN (13:15)
[2018-08-25] MEDS ORDERED: ACETAMINOPHEN 650 MG SUPP PR PRN (13:15)
[2018-08-25] MEDS ORDERED: ONDANSETRON HCL INJ 2 MG/ML VIAL IV PRN (13:15)
[2018-08-25] MEDS ORDERED: PROMETHAZINE HCL (IM) 25 MG/ML VIAL INJ PRN (13:15)
[2018-08-25] MEDS ORDERED: ZOLPIDEM TARTRATE 5 MG TAB PO PRN (13:15)
[2018-08-25] MEDS ORDERED: CEFAZOLIN SOD 1 GM/D5W 50ML 50 ML IV SCH (14:00)
[2018-08-25] MEDS ORDERED: FENTANYL CITRATE/PF 100MCG/2 ML INJ ONE ×2 (14:15→18:56)
[2018-08-25] MEDS ORDERED: HYDROMORPHONE 2MG/ML 2 MG/ML ML ONE (14:38)
[2018-08-25] MEDS: SODIUM CHLORIDE 0.9% 1000ML 1,000 ML IV SCH ×2 (16:20→23:10)
[2018-08-25] MEDS: CEFAZOLIN SOD 1 GM/D5W 50ML 50 ML IV SCH ×2 (16:20→23:08)
--- NOTE | 2018-08-25 16:59 | NUR ---
NEISHA An made aware of pt allergy to celebrex.
[2018-08-25] MEDS ORDERED: CELECOXIB 100 MG CAP PO SCH (17:00)
[2018-08-25] MEDS: ASPIRIN 325 MG TAB PO SCH (17:28)
[2018-08-25] MEDS: ACETAMINOPHEN 1000 MG/100 ML IV SCH (18:35)
[2018-08-25] MEDS ORDERED: MIDAZOLAM HCL 2 MG/2 ML VIAL ONE (18:56)
--- NOTE | 2018-08-25 19:08 | NUR ---
Handoff report given to oncoming nightclub manager nurse.
--- NOTE | 2018-08-25 19:15 | NUR ---
SMALL AMOUNT OF DRY BLOOD NOTED TO THE LEFT HIP DRESSING, THE AREA WAS MARKED FOR CLOSE OBSERVATION. NO RESPIRATORY DISTRESS OBSERVED, PATIENT DENIES PAIN TO THE LEFT HIP. CALL LIGHT WITHIN EASY REACH, INSTRUCTED TO CALL FOR ASSISTANCE NEEDED.
[2018-08-25] MEDS ORDERED: ATROPINE SULFATE 1 MG/ML VIAL ONE (19:27)
[2018-08-25] MEDS ORDERED: SEVOFLURANE INHAL SOLN 250 ML PEN BTL ONE (19:27)
[2018-08-25] MEDS ORDERED: KETOROLAC TROMETHAMINE 30 MG/ML VIAL ONE (19:27)
[2018-08-25] MEDS ORDERED: DEXAMETHASONE SOD PHOS INJ 4 MG/ML VIAL ONE (19:27)
[2018-08-25] MEDS ORDERED: PROPOFOL IV EMULSION 10 MG/ML 20 ML VIAL ONE (19:27)
[2018-08-25] MEDS ORDERED: ONDANSETRON HCL INJ 2 MG/ML VIAL ONE (19:27)
[2018-08-25] MEDS ORDERED: LIDOCAINE HCL 2% LOCAL INJ 5 ML SDV VIAL INJ ONE (19:27)
[2018-08-25] MEDS ORDERED: EPHEDRINE SULFATE INJ 50 MG/10 ML SYR ONE (19:27)
--- NOTE | 2018-08-25 21:47 | NUR ---
PATIENT C/O PAINFUL SENSATION AT HER IV SITE, IV FLUID STOP. WILL HAVE ANOTHER NURSE TO START ANOTHER IV.
[2018-08-26] VITALS (8 sets, daily range): BP systolic 148–166; BP diastolic 68–75
[2018-08-26] MEDS: ACETAMINOPHEN 1000 MG/100 ML IV SCH ×3 (00:12→12:00)
--- NOTE | 2018-08-26 00:16 | NUR ---
PATIENT C/O MILD PAIN TO THE LEFT HIP WITH PAIN SCORE #2, MEDICATED WITH IV TYLENOL SCHEDULE. ASSISTED WITH ADLS, CALL LIGHT WITHIN EASY REACH, INSTRUCTED TO CALL FOR ASSISTANCE NEEDED.
--- NOTE | 2018-08-26 04:10 | NUR ---
WALKING ROUNDS MADE, DRESSING REMAINS THE SAME TO THE LEFT HIP WITHOUT ACTIVE BLEEDING. PATIENT DENIES PAIN TO THE LEFT HIP, CALL LIGHT IN EASY REACH, INSTRUCTED TO CALL FOR ASSISTANCE NEEDED.
[2018-08-26 05:33] LABS: HEMOGLOBIN 10.5 g/dL (12.0-16.0)
[2018-08-26] MEDS: METOPROLOL TARTRATE 50 MG TAB PO SCH (06:12)
[2018-08-26] MEDS: CEFAZOLIN SOD 1 GM/D5W 50ML 50 ML IV SCH (06:26)
--- NOTE | 2018-08-26 07:31 | NUR ---
Received patient, walking rounds complete. Patient resting in bed, no signs of distress at this time. Bed in lowest position, wheels locked, side rails up x2, call light in reach.
[2018-08-26] MEDS: ASPIRIN 325 MG TAB PO SCH ×2 (08:11→16:37)
[2018-08-26] MEDS: NIFEDIPINE CR 30 MG TAB PO SCH (08:11)
--- NOTE | 2018-08-26 11:15 | NUR ---
Patient A/O X3, even respirations unlabored on room air. Last bowel movement was Friday, bowel sounds present. Bilateral lower extremity 2+ non-pitting edema. Paged Dr. Vila about patients request for Milk of Magnesia. Patient states she is toe touch weight bearing status but has been ambulating with walker. Left hip dressing is clean, dry, and intact. Will continue to monitor.
[2018-08-26] MEDS ORDERED: BISACODYL 10 MG SUPP PR ONE (13:00)
[2018-08-26] MEDS ORDERED: MAGNESIUM HYDROXIDE 30 ML UDC PO ONE (13:00)
[2018-08-26] MEDS ORDERED: ACETAMINOPHEN 1000 MG/100 ML IV PRN (13:15)
--- NOTE | 2018-08-26 15:59 | NUR ---
SPOKE WITH PT HER INSURANCE IS NOT IN NETWORK WITH [facility] SHE SIGNED CHOICE WITH [facility]. FAXED CLINICALS TO [phone]
[2018-08-26] MEDS: HYDROCODONE/APAP 7.5MG-325MG 1 EA TAB PO PRN ×2 (16:38→22:03)
[2018-08-26] MEDS ORDERED: SENNOSIDES 8.6 MG TAB PO SCH (17:00)
--- NOTE | 2018-08-26 19:10 | NUR ---
REPORT TAKEN FROM MORNING RN.LYEING QUIETLY IN THE BED.NO PAIN VOICED.STABLE CONDITION.
[2018-08-26] MEDS: SENNOSIDES 8.6 MG TAB PO SCH (20:49)
--- NOTE | 2018-08-26 21:30 | NUR ---
ASSESSMENT DONE.NO RESP.DISTRESS.PAIN MEDICINE GIVEN.VOIDED.DSG @ L.HIP PLACED.DRY AND INTACT.BED LOCKED AND IN LOWEST POSITION.PHONE AND CALL LIGHT WITHIN REACH.INSTRUCTED TO CALL FOR ASSISTANCE NEEDED.
[2018-08-27] VITALS (8 sets, daily range): BP systolic 140–179; BP diastolic 63–115
--- NOTE | 2018-08-27 00:10 | NUR ---
PROVIDED SNACKS.DRESSING SEEMED TO LOOSE.CHANGED DRESSING.INCISION SITE IS DRY AND INTACT.STABLE CONDITION.
[2018-08-27] MEDS: HYDROCODONE/APAP 7.5MG-325MG 1 EA TAB PO PRN ×4 (02:55→19:28)
[2018-08-27] MEDS: HYDROMORPHONE 2MG/ML 2 MG/ML ML IV PRN (04:27)
--- NOTE | 2018-08-27 04:30 | NUR ---
PAIN VOICED 04/20.MEDICATED WIT DILAUDID 1MGV.
[2018-08-27 05:32] LABS: BASOPHILS % 0.7 % (0.0-1.0); EOSINOPHILS # (AUTO) 0.3 (0.0-0.4); EOSINOPHILS % 5.3 % (0.0-6.0); HEMOGLOBIN 10.9 g/dL (12.0-16.0); LYMPHOCYTES # (AUTO) 1.7 (1.0-3.2); LYMPHOCYTES % 29.2 % (18.0-39.1); MEAN CORPUSCULAR HEMOGLOBIN 30.2 pg (28-32); MEAN CORPUSCULAR HGB CONC 32.1 g/dL (31-35); MEAN CORPUSCULAR VOLUME 94.2 fL (81-99); MONOCYTES # (AUTO) 0.5 (0.2-0.8); MONOCYTES % 8.7 % (4.4-11.3); NEUTROPHILS # (AUTO) 3.2 (2.1-6.9); NEUTROPHILS % 55.6 % (38.7-80.0); PLATELET COUNT 175 x10e3/uL (140-360); RED BLOOD COUNT 3.61 x10e6/uL (3.6-5.1); RED CELL DISTRIBUTION WIDTH 12.9 % (11.7-14.4)
--- NOTE | 2018-08-27 05:48 | NUR ---
BP 150/72 MM OF HG.PT REFUSED TO TAKE METOPROLOL 100 MG PO @6 AM.PT STATED THAT WILL TAKE METOPROLOL AND PROCARDIA TOGETHER @ 9AM .
[2018-08-27 05:59] LABS: ANION GAP 12.8 mmol/L (8-16); BLOOD UREA NITROGEN 16 mg/dL (7-26); BUN/CREATININE RATIO 20 (6-25); CALCIUM 9.2 mg/dL (8.4-10.2); CARBON DIOXIDE 26 mmol/L (22-29); CHLORIDE 105 mmol/L (98-107); EST GLOMERULAR FILTRATION RATE > 60 ML/MIN (60-); GLUCOSE 104 mg/dL (74-118); POTASSIUM 3.8 mmol/L (3.5-5.1); SODIUM 140 mmol/L (136-145)
--- NOTE | 2018-08-27 07:00 | NUR ---
REPORT GIVEN TO THE ONCOMING RN.WALKING ROUNDS DONE.STABLE CONDITION.
--- NOTE | 2018-08-27 07:16 | NUR ---
Received patient and walking rounds complete. Patient lying down asleep in bed at this time, no signs of distress. Bed in lowest position, wheels locked, side rails up x2. Call light in reach.
[2018-08-27] MEDS ORDERED: NIFEDIPINE CR 30 MG TAB PO ONE (09:00)
--- NOTE | 2018-08-27 09:00 | NUR ---
Patient A/O X3, respirations even and unlabored on room air. Last bowel movement yesterday, bowel sounds active. Right wrist IV, saline locked. Patient is toe touch weight bearing but uses walker when ambulating. Left hip dressing is clean, dry, and intact. Will continue to monitor.
[2018-08-27] MEDS: SENNOSIDES 8.6 MG TAB PO SCH ×2 (09:07→21:54)
[2018-08-27] MEDS: ASPIRIN 325 MG TAB PO SCH ×2 (09:07→17:28)
[2018-08-27] MEDS: METOPROLOL TARTRATE 50 MG TAB PO SCH (09:41)
--- NOTE | 2018-08-27 12:38 | Operative Report ---
DATE OF PROCEDURE: August 25, 2018 COSMETIC MAKER: Juve Joy PA-C The patient was brought to the operating room for induction of anesthesia. Throughout this case, my PA's assistance was necessary for retraction of soft tissue and positioning of the extremity. This allows for efficient and technically successful execution of the operation and is considered medically necessary. PREOPERATIVE DIAGNOSIS: Left femoral neck fracture. POSTOPERATIVE DIAGNOSIS: Left femoral neck fracture. PROCEDURE: Closed reduction and percutaneous pin fixation, left femoral neck. INDICATIONS: The patient is a 77-year-old lady who has an incomplete left femoral neck fracture. She has had groin pain for about 3 months. X-rays did not show a clear evidence of a fracture. CT scan shows a crack in the femoral neck on the tension side. The findings and options have been discussed. We plan on percutaneous screw fixation. The risks and benefits were discussed with the patient. She states she understands and wishes to proceed. DESCRIPTION OF PROCEDURE: The patient was brought to the operating room and placed under general anesthetic. She received prophylactic antibiotics in the holding area. She was positioned on the fracture table with gentle traction. Her left hip was prepped and draped in a sterile manner. A preoperative time out was performed. A C-arm image intensifier confirmed that there was no displacement in either the AP or lateral plane. A small incision was made over the upper lateral thigh. A 7.3-mm cannulated screw system was used. A guide pin was placed from lateral to medial into the femoral head. This was checked in the AP and lateral plane, and positioning was satisfactory. An 80-mm partially threaded screw was then placed into the femoral head. A second 85-mm screw was then placed. Excellent fixation was obtained. Final x-rays confirmed anatomic reduction and good positioning of the hardware. The incision was closed with subcuticular Vicryl. Mastisol and Steri-Strips were applied. There was no blood loss, and all needle and sponge counts were correct. Job#: [id number]
--- NOTE | 2018-08-27 19:10 | NUR ---
REPORT TAKEN FROM AM RN.ROUNDS TAKEN PAIN VOICED.MEDICATE WITH NORCO7.5MG.
--- NOTE | 2018-08-27 21:00 | NUR ---
DRESSING DRY AND INTACT.VOIDED.NO RESP.DISTRESS.BED LOCKED AND IN LOWEST POSITION.PHONE AN MARILEE WHEELER EACH.INSTRUCTED TO CALL FOR ASSISTANCE NEEDED.
[2018-08-28] VITALS (8 sets, daily range): BP systolic 142–184; BP diastolic 66–84
[2018-08-28] MEDS: HYDROCODONE/APAP 7.5MG-325MG 1 EA TAB PO PRN (00:44)
--- NOTE | 2018-08-28 05:00 | NUR ---
DRESSING CHANGED.NO BLEEDING FROM THE SITE.DRY AND INTACT.
[2018-08-28] MEDS ORDERED: NIFEDIPINE CR 30 MG TAB PO SCH (06:00)
[2018-08-28] MEDS: HYDROMORPHONE 2MG/ML 2 MG/ML ML IV PRN (06:11)
--- NOTE | 2018-08-28 06:27 | NUR ---
COLACE PO GIVEN .NO BM.BP 165/72 MMOF HG.
--- NOTE | 2018-08-28 06:50 | NUR ---
REPORT GIVEN TO THE ONCOMING RN.WALKING ROUNDS DONE.STABLE CONDITION.
[2018-08-28] MEDS ORDERED: BISACODYL 10 MG SUPP PR PRN (08:45)
[2018-08-28] MEDS ORDERED: MAGNESIUM HYDROXIDE 30 ML UDC PO ONE (08:45)
[2018-08-28] MEDS ORDERED: BISACODYL 10 MG SUPP PR ONE (08:45)
[2018-08-28] MEDS ORDERED: MAGNESIUM HYDROXIDE 30 ML UDC PO PRN (08:45)
[2018-08-28] MEDS ORDERED: FENTANYL 25 MCG/HR PATCH TOP SCH (08:45)
[2018-08-28] MEDS ORDERED: POLYETHYLENE GLYCOL 3350 17 GM PACK PO SCH (09:00)
[2018-08-28] MEDS: NIFEDIPINE CR 30 MG TAB PO SCH (10:00)
[2018-08-28] MEDS: METOPROLOL TARTRATE 50 MG TAB PO SCH (10:00)
[2018-08-28] MEDS: SENNOSIDES 8.6 MG TAB PO SCH ×2 (10:00→20:35)
--- NOTE | 2018-08-28 10:54 | NUR ---
PT REFUSING MIRALAX, SUPP, AND FENTANYL PATH AT THIS TIME, WILL "TAKE LATER", WANTS TO SHOWER FIRST, Addendum: 08/28/18 at 1822 by Maria Isabel Villatoro RN patch
--- NOTE | 2018-08-28 12:52 | NUR ---
FAXED CLINICALS TO [facility]
--- NOTE | 2018-08-28 14:09 | NUR ---
PT GIVEN SUPP PER MD ORDER AT THIS TIME, AMBULATED WITH PHYSICAL THERAPY, NOW IN BR, CALL STRING WITHIN REACH
[2018-08-28] MEDS ORDERED: SOD PHOSPHATE/SOD BIPHOSPHATE ENEMA 132 ML BTL PR NR (14:30)
--- NOTE | 2018-08-28 15:57 | NUR ---
CM SPOKE TO PATIENT AT BEDSIDE. PATIENT STATES SHE WILL BE LEAVING TODAY AT 4 PM IF RESIDENTIAL FACILITY IS NOT SET UP. SHE STATES SHE WILL GO WITH HOME HEALTH. CHOICE LETTER SIGNED FOR [facility]. CLINICAL SENT TO [facility]. PENDING ACCEPTANCE FOR DISCHARGE. PATIENT AWARE TO CALL CM IF [facility] DOES NOT COME OUT TO VISIT WITHIN 24-48 HOURS POST DISCHARGE. PATIENT DISCHARGING HOME WITH HOME HEALTH: [facility] (P) [phone] (F) [phone]
--- NOTE | 2018-08-28 18:22 | NUR ---
PT TOLERATING PO, HAD LARGE BM, EARLIER AFTER ENEMA, PT REQUESTING FENTANYL PATCH AT THIS TIME, CALL LIGHT WITHIN REACH
--- NOTE | 2018-08-28 19:09 | NUR ---
WALKING ROUNDS PERFORMED, RECEIVED PT LAYING SEMI FOWLERS IN BED, AAOX3, RR EVEN AND NON-LABORED, ON RA. NO S/SX OF DISTRESS NOTED. DRESSING TO (L) HIP NOTED TO BE CDI. LEFT PT LAYING SEMI FOWLERS IN BED, BED IN LOW LOCKED POSITION, SIDE RAILS UPX2, CALL LIGHT AND PHONE WITHIN REACH.
--- NOTE | 2018-08-28 19:17 | NUR ---
SPOKE TO MD KELLER, MADE AWARE THAT PT IS NOT GOING TO SNF WILL BE GOING HOME WITH HOME HEALTH, WILL ROUND IN AM
--- NOTE | 2018-08-28 20:05 | NUR ---
SPOKE WITH MD KELLER CONCERNING PT ELEVATED TEMP. NEW ORDERS RECEIVED.
--- NOTE | 2018-08-28 20:15 | NUR ---
PT ASSISTED TO BATHROOM WITH WALKER, TDWB AMBULATION. URINE COLLECTED AT THIS TIME. ASSISTED PT BACK TO BED.
--- NOTE | 2018-08-28 20:20 | NUR ---
RADIOLOGY AT BEDSIDE FOR CXRAY.
[2018-08-28] MEDS ORDERED: SODIUM CHLORIDE 0.9% 250ML 250 ML ONE (20:25)
[2018-08-28 20:35] LABS: BILIRUBIN,URINE NEGATIVE (NEGATIVE); CLARITY,URINE SL CLOUDY (CLEAR); COLOR,URINE YELLOW (YELLOW); KETONES,URINE NEGATIVE (NEGATIVE); LEUKOCYTE ESTERASE ,URINE TRACE (NEGATIVE); NITRITE,URINE NEGATIVE (NEGATIVE); PROTEIN,URINE DIPSTICK NEGATIVE (NEGATIVE); URINE UROBILINOGEN 0.2 mg/dL (0.2 - 1)
[2018-08-28] MEDS: CEFTRIAXONE SOD 1 GM/NS 50 ML 50 ML IV SCH (20:35)
[2018-08-28] MEDS: POLYETHYLENE GLYCOL 3350 17 GM PACK PO SCH (20:35)
[2018-08-28] MEDS: ASPIRIN 325 MG TAB PO SCH (20:35)
[2018-08-28 20:43] LABS: EPITHELIAL CELLS,URINE FEW /LPF; RBC,URINE 0-5 /HPF (0-5); RENAL EPITHELIAL CELLS,URINE FEW
--- NOTE | 2018-08-28 21:28 | Diagnostic Imaging Report ---
EXAM: CHEST SINGLE (PORTABLE), AP 1 view INDICATION: Fever COMPARISON: AP view of the chest August 24, 2018 FINDINGS: LINES/TUBES: None LUNGS: No consolidations or edema. PLEURA: No effusions or pneumothorax. HEART AND MEDIASTINUM: Normal size and contour. BONES AND SOFT TISSUES: Chronic deformity of the right first and second ribs. IMPRESSION: No consolidative pneumonia. Signed by: Dr. Bibi Gómez M.D. on 08/28/2018 9:25 PM
[2018-08-29] VITALS: BP 122/58
[2018-08-29 04:00] VITALS: BP 142/64
[2018-08-29] MEDS: HYDROMORPHONE HCL 2 MG TAB PO PRN ×2 (05:01→12:53)
[2018-08-29 05:50] LABS: BASOPHILS % 0.7 % (0.0-1.0); EOSINOPHILS # (AUTO) 0.3 (0.0-0.4); EOSINOPHILS % 7.1 % (0.0-6.0); HEMATOCRIT 35.2 % (34.2-44.1); HEMOGLOBIN 11.1 g/dL (12.0-16.0); LYMPHOCYTES # (AUTO) 1.4 (1.0-3.2); LYMPHOCYTES % 31.9 % (18.0-39.1); MEAN CORPUSCULAR HEMOGLOBIN 30.2 pg (28-32); MEAN CORPUSCULAR HGB CONC 31.5 g/dL (31-35); MEAN CORPUSCULAR VOLUME 95.7 fL (81-99); MONOCYTES # (AUTO) 0.8 (0.2-0.8); MONOCYTES % 17.8 % (4.4-11.3); NEUTROPHILS # (AUTO) 1.8 (2.1-6.9); NEUTROPHILS % 41.4 % (38.7-80.0); PLATELET COUNT 188 x10e3/uL (140-360); RED BLOOD COUNT 3.68 x10e6/uL (3.6-5.1); RED CELL DISTRIBUTION WIDTH 12.9 % (11.7-14.4)
[2018-08-29 06:27] LABS: BLOOD UREA NITROGEN 17 mg/dL (7-26); BUN/CREATININE RATIO 17 (6-25); CALCIUM 9.3 mg/dL (8.4-10.2); CARBON DIOXIDE 27 mmol/L (22-29); CHLORIDE 102 mmol/L (98-107); EST GLOMERULAR FILTRATION RATE > 60 ML/MIN (60-); GLUCOSE 112 mg/dL (74-118); SODIUM 139 mmol/L (136-145)
--- NOTE | 2018-08-29 06:30 | NUR ---
DRESSING CHANGE PERFORMED TO (L) HIP. INCISION CDI WITH X3 STERI STRIPS IN PLACE. APPLIED 2X2 AND SECURED WITH TAPE.
--- NOTE | 2018-08-29 08:30 | NUR ---
MD KELLER INTO SEE PT, DISCUSSED POC
[2018-08-29 08:40] VITALS: BP 157/69
[2018-08-29] MEDS: ASPIRIN 325 MG TAB PO SCH (08:57)
[2018-08-29] MEDS: METOPROLOL TARTRATE 50 MG TAB PO SCH (08:57)
[2018-08-29] MEDS: CEFTRIAXONE SOD 1 GM/NS 50 ML 50 ML IV SCH (08:57)
[2018-08-29] MEDS: POLYETHYLENE GLYCOL 3350 17 GM PACK PO SCH (08:58)
[2018-08-29] MEDS: NIFEDIPINE CR 30 MG TAB PO SCH (08:58)
[2018-08-29] MEDS: SENNOSIDES 8.6 MG TAB PO SCH (08:58)
[2018-08-29 09:01] VITALS: BP 157/69
--- NOTE | 2018-08-29 09:04 | NUR ---
PT AWARE OF DISCHARGE, WILL HAVE RIDE AROUND 12PM
--- NOTE | 2018-08-29 10:05 | NUR ---
PHYSICAL THERAPY AMBULATED WITH PT
--- NOTE | 2018-08-29 10:17 | Discharge Summary ---
PRIMARY CARE PHYSICIAN: Dr. Jessee Rodriguez. PROFESSOR OF FORESTRY: Dr. Gabriel Prasad. FINAL DIAGNOSES 1. Left femoral neck fracture status post closed reduction and percutaneous pinning fixation of left femoral neck. The procedure was done by Dr. Garbiel Prasad and procedure date was August 25, 2018. 2. Intractable pain secondary to chronic lower back pain and left hip pain postoperative surgery. 3. Baseline hypertension. 4. Anxiety disorder. SUMMARY: This is a 77-year-old female who apparently fell, had left femoral neck fractures. Patient underwent surgery as mentioned above, unremarkable. No complication. Problem with the patient is she is undergoing pain management and recently stopped going. Therefore increase in pain. She is allergic to codeine, morphine, and Celebrex, but she is able to tolerate Fenton outpatient. The patient's pain management for the past few days with adjustment of medication. She has also had some bowel problem with constipation. Her pain is now controlled with fentanyl patch 25 mcg every 72 hours and along with that breakthrough pain medication. She is stable. She has good bowel movement. Laboratory, otherwise unremarkable. The patient is getting physical therapy. She has been denied for skilled care by insurance. Today, she is going home this morning with home health arrangement. She does have a rolling walker. Patient is stable for discharge home today. Followup with Dr. Prasad next week and Dr. Jessee Rodriguez, her PCP in approximately 1 week as well. DISCHARGE MEDICATIONS Duragesic patch 25 mcg 1 patch chest wall every 72 hours, 5 patches. Fenton 10/325 mg one q.6 p.r.n. for breakthrough pain, #30. Senna S 1 tablet b.i.d. MiraLAX 17 g b.i.d. Ecotrin 325 mg one b.i.d. for 10 days. Omeprazole 40 mg daily. CONDITION ON DISCHARGE: Patient is stable, discharge home, followup with Dr. Prasad and Jessee Rodriguez as instructed. Job#: [id number] MARCEL
--- NOTE | 2018-08-29 10:56 | NUR ---
PT GOT IN SHOWER BY SELF WITHOUT TELLING NURSE OR PCT, PULLED "IV OUT WHILE DRYING OFF", ASSISTED TO CLEAN UP AND BACK TO BED, PT EDUCATED TO CALL FOR ASSISTANCE BEFORE GETTING OOB, CALL LIGHT WITHIN REACH
[2018-08-29 12:17] VITALS: BP 150/67
== END 2018-08-29 13:10 | disposition home health service (06) | DRG 482 ==
LOC: ER 16:08 → ERHOLD 20:58 → MED/SURG 22:17
PROVIDERS: ADMIT Internal Medicine; ATTEND Internal Medicine
PROC: 0QS734Z Reposition Left Upper Femur with Internal Fixation Device, Percutaneous Approach (ICD-10-PCS; principal; 2018-08-27)
DX: S72.012A Unspecified intracapsular fracture of left femur, initial encounter for closed fracture (principal); I10 Essential (primary) hypertension; M79.7 Fibromyalgia; M19.90 Unspecified osteoarthritis, unspecified site; M51.36 Other intervertebral disc degeneration, lumbar region; M54.5 Low back pain; G89.29 Other chronic pain; K59.00 Constipation, unspecified; W17.89XA Other fall from one level to another, initial encounter; Y93.B1 Activity, exercise machines primarily for muscle strengthening; Y92.39 Other specified sports and athletic area as the place of occurrence of the external cause; Z98.1 Arthrodesis status; Z96.653 Presence of artificial knee joint, bilateral; Z88.5 Allergy status to narcotic agent
CPT/HCPCS: 36415; 71045; 72110; 76000; 80048; 80053; 81001; 83518; 85014; 85018; 85025; 87070; 87086; 87400; 93005; 96367; 97139; 99284; C1713; J0461; J0690; J0696; J1100; J1885; J2001; J2250; J2405; J7030; J7050; J7121

== ENCOUNTER → 2022-08-29 | Day surgery (SDC) | payer MEDICARE, OTHER ==
[2022-08-26 14:34] LABS: BASOPHILS % 0.6 % (0.0-1.0); EOSINOPHILS # (AUTO) 0.2 (0.0-0.4); EOSINOPHILS % 3.6 % (0.0-6.0); HEMATOCRIT 40.8 % (34.2-44.1); HEMOGLOBIN 12.5 g/dL (12.0-16.0); LYMPHOCYTES # (AUTO) 1.8 (1.0-3.2); LYMPHOCYTES % 33.8 % (18.0-39.1); MEAN CORPUSCULAR HEMOGLOBIN 30.2 pg (28-32); MEAN CORPUSCULAR HGB CONC 30.6 g/dL (31-35); MEAN CORPUSCULAR VOLUME 98.6 fL (81-99); MONOCYTES # (AUTO) 0.6 (0.2-0.8); MONOCYTES % 10.7 % (4.4-11.3); NEUTROPHILS # (AUTO) 2.7 (2.1-6.9); NEUTROPHILS % 51.1 % (38.7-80.0); PLATELET COUNT 222 x10e3/uL (140-360); RED BLOOD COUNT 4.14 x10e6/uL (3.6-5.1); RED CELL DISTRIBUTION WIDTH 11.9 % (11.7-14.4)
[~2022-08-29] MED LIST changes: +CYCLOPENTOLATE HCL 2% OPTH SOLN 2 ML BTL OP ONE; +GATIFLOXACIN(OPTH) 5 ML LIQD ONE; +HYDROCODON-ACE1 EA11 PO; +LIDOCAINE HCL 2% LOCAL INJ 5 ML SDV VIAL INJ ONE; +MIDAZOLAM HCL 2 MG/2 ML VIAL ONE; +NIFEDIPINE ER30 MG; +NIFEDIPINE10 MG PO; +PHENYLEPHRINE HCL 2 ML DROPS ONE; +POVIDONE IODINE 0.05% 0.05 % ML PO ONE; +PROPOFOL IV EMULSION 10 MG/ML 20 ML VIAL ONE
[2022-08-29 10:40] VITALS: BP 140/82
== END | disposition home or self-care (01) ==
LOC: OR 06:19
PROVIDERS: ATTEND Ophthalmology
DX: H25.12 Age-related nuclear cataract, left eye (principal); I10 Essential (primary) hypertension; Z88.6 Allergy status to analgesic agent; Z01.812 Encounter for preprocedural laboratory examination; Z79.899 Other long term (current) drug therapy
CPT/HCPCS: 36415; 85025; J2001; J2250; V2632

== ENCOUNTER → 2022-12-25 | Outpatient (CLI) | payer OTHER ==
[~2022-12-25] MED LIST changes: -CYCLOPENTOLATE HCL 2% OPTH SOLN 2 ML BTL OP ONE; -GATIFLOXACIN(OPTH) 5 ML LIQD ONE; -LIDOCAINE HCL 2% LOCAL INJ 5 ML SDV VIAL INJ ONE; -MIDAZOLAM HCL 2 MG/2 ML VIAL ONE; -PHENYLEPHRINE HCL 2 ML DROPS ONE; -POVIDONE IODINE 0.05% 0.05 % ML PO ONE; -PROPOFOL IV EMULSION 10 MG/ML 20 ML VIAL ONE
== END ==
LOC: RAD 12:31
PROVIDERS: ATTEND Family Medicine
DX: I10 Essential (primary) hypertension (principal)
CPT/HCPCS: 93306

== ENCOUNTER 2023-06-05 13:46 | Emergency (ER) | payer MEDICARE, OTHER ==
[~2023-06-05] VITALS: Ht 175.3 cm; Wt 99.8 kg
[2023-06-05] MEDS ORDERED: LACTATED RINGER'S 1,000 ML IV ONE (14:15)
[2023-06-05] MEDS ORDERED: ACETAMINOPHEN 325 MG TAB PO ONE (14:15)
[2023-06-05] MEDS ORDERED: IBUPROFEN 400 MG TAB PO ONE (14:15)
[2023-06-05 14:29] LABS: BASOPHILS % 0.4 % (0.0-1.0); EOSINOPHILS # (AUTO) 0.1 (0.0-0.4); EOSINOPHILS % 1.3 % (0.0-6.0); HEMATOCRIT 36.9 % (34.2-44.1); HEMOGLOBIN 12.3 g/dL (12.0-16.0); LYMPHOCYTES # (AUTO) 0.5 (1.0-3.2); MEAN CORPUSCULAR HEMOGLOBIN 30.5 pg (28-32); MEAN CORPUSCULAR HGB CONC 33.3 g/dL (31-35); MEAN CORPUSCULAR VOLUME 91.6 fL (81-99); MONOCYTES # (AUTO) 0.7 (0.2-0.8); NEUTROPHILS # (AUTO) 6.1 (2.1-6.9); NEUTROPHILS % 82.2 % (38.7-80.0); PLATELET COUNT 204 x10e3/uL (140-360); RED BLOOD COUNT 4.03 x10e6/uL (3.6-5.1); RED CELL DISTRIBUTION WIDTH 12.4 % (11.7-14.4); WHITE BLOOD COUNT 7.47 x10e3/uL (4.8-10.8)
[2023-06-05 14:48] LABS: ALBUMIN/GLOBULIN RATIO 0.9 (0.8-2.0); ANION GAP 15.8 mmol/L (8-16); CALCIUM 9.6 mg/dL (8.4-10.2); CREATININE, SERUM 0.99 mg/dL (0.57-1.11); MAGNESIUM 2.2 MG/DL (1.3-2.1); POTASSIUM 3.8 mmol/L (3.5-5.1)
[2023-06-05 15:11] LABS: INFLUENZAE A&B ANTIGEN (RAPID) NEGATIVE (NEGATIVE)
[2023-06-05 15:22] VITALS: O2SAT 100
[2023-06-05 15:29] LABS: RESPIRATORY SYNC. VIRUS NEGATIVE (NEGATIVE)
[2023-06-05] MEDS ORDERED: NAPROXEN250 MG PO (15:43)
== END 2023-06-05 16:06 | disposition home or self-care (01) ==
LOC: ER 13:57
DX: M54.2 Cervicalgia (principal); U07.1 COVID-19; V43.52XA Car driver injured in collision with other type car in traffic accident, initial encounter; Y92.488 Other paved roadways as the place of occurrence of the external cause; I10 Essential (primary) hypertension; M79.7 Fibromyalgia
CPT/HCPCS: 36415; 71045; 80053; 82550; 83690; 83735; 84484; 85025; 87040; 87400; 87420; 93005; 99284; U0002